=== PATIENT | male | born 1970 | race Caucasian/White ===

== ENCOUNTER 2017-11-16 00:15 | Emergency (ER) | payer OTHER, SELFPAY ==
[2017-11-16 00:16] VITALS: BP 171/105; PULSE 101; RESP 18; TEMP 36.6; O2SAT 98; BMI 32.1
--- NOTE | 2017-11-16 00:25 | CT_ITS ---
STUDY: CT BRAIN WITHOUT CONTRAST REASON FOR EXAM: Male, 47 years old. Patient has fátima RADIATION DOSAGE (If Supplied By Facility): CTDIvol = ( 44.99 ) mGy, DLP = ( 846.73 ) mGycm TECHNIQUE: Transaxial CT imaging of the brain was performed without administration of intravenous contrast material. Individualized dose optimization techniques were used for this CT. COMPARISON: None. FINDINGS: Normal soft tissue structures. Normal calvarium. Normal size ventricles and extra-axial spaces for the patient's age. Normal white matter tracts of the cerebral hemispheres. Normal basal ganglia and thalami. Normal brainstem. Normal cerebellum. There is no intracranial hemorrhage. There are no findings of an acute ischemic infarction. Normal visualized paranasal sinuses. CT/Brain/Head without Contrast IMPRESSION: Normal unenhanced CT scan of the brain. No acute findings in the brain Electronically Signed: Jimmie Batista, at 1:20 EST Tel , Service support ,
--- NOTE | 2017-11-16 00:47 | ED.VISSUMM ---
- ER Visit Summary Date of Service: 11/16/17 Chief Complaint: Altered mental state History of Present Illness: The patient is a 47 M who presents with an altered mental state. Approximately 1 month ago the patient had gallstone pancreatitis. He is transferred to [facility] had definitive management including a cholecystectomy. He was discharged home on her cassette for pain control. After he finished this course he started noticing that he was manic. states that he was impulsive and had a hard time focusing. He attempted to buy a car. They followed up with his primary care physician twice and counseling. His PCP started him on Seroquel thinking that a combination of the Percocet with his antidepressants was causing him to have a manic state. The patient has not slept well so he comes in today for evaluation. He has a diagnosis of depression but has never been bipolar or had any other previous fátima episodes. He states his abdomen is slightly tender but it is improving. Physical Examination: Vital signs reviewed. HEENT exam unremarkable. Heart is regular rate and rhythm without murmurs. Lungs are clear to auscultation. Abdomen is soft and nontender. Extremities reveal no edema. Skin exam normal. Neurologic exam normal. Psychologic exam reveals the patient does have pressured speech. He states he has a hard time focusing when I am speaking to the and he is speaking to the nurse. He denies being suicidal. He is tearful when he talks about not sleeping. Test Results: Laboratory studies normal. Tox and alcohol negative. CAT scan of the head normal Emergency Department Course and Treatment: The patient does have some tangential speech. Concern for fátima. I did want crisis to evaluate the patient. However, there was a delay in this and the just wants to take the patient home. She would like and have some Benadryl so he will sleep. They do have outpatient follow-up with a psychiatrist in their PCP already scheduled. Treatment Plan: [] Disposition: Discharge Impression: Manic episode This note was generated with [employer] dictation software. It may contain incorrect words, spelling, and punctuation that were not noted in review of the chart prior to signing ED Disposition - Plan for ED Patient: Chief Complaint: Mental Status Change Referrals: Addie Henry MD [Primary Care Provider] -
[2017-11-16 00:53] LABS: Absolute Lymphocyte Count 2.69 X10^3/ul (0.83-4.51); Absolute Neutrophil Count 5.5 X10^3/uL (2.0-7.7); Basophil# 0.05 X10^3/uL; Basophil% 0.5 % (0-1); Eosinophil# 0.54 X10^3/uL; Eosinophils% 5.6 % (0-5); Hematocrit 44.1 % (40-54); Hemoglobin 15.1 g/dl (13.0-16.5); Lymphocyte # 2.69 X10^3/ul (4.0); Lymphocyte % 27.7 % (19-41); Mean Corp Hgb Conc 34.2 g/gl (32-36); Mean Corpuscular Hgb 30.9 pg (27.0-32.0); Mean Corpuscular Volume 90.4 fL (80-94); Mean Platelet Vol. 11.4 fl (6.2-12.0); Monocyte# 0.92 X10^3/uL; Monocyte% 9.5 % (0-10); Neutrophil # 5.48 X10^3/uL (2.7-7.7); Neutrophil % 56.4 % (47-70); Platelet Count 191 K/mm3 (150-450); RBC Distribution Width CV 13.5 % (11.6-14.6); RBC Distribution Width SD 44.5 fl (35.1-43.9); Red Blood Count 4.88 M/mm3 (4.6-6.2); White Blood Count 9.7 K/mm3 (4.4-11.0)
[2017-11-16 00:54] LABS: POSITIVE COUNT NO; POSITIVE DIFFERENTIAL NO; POSITIVE MORPHOLOGY NO
[2017-11-16 01:12] LABS: AST(SGOT) 35 U/L (15-37); Alanine Aminotransfer ALT/SGPT 76 U/L (16-61); Albumin, Serum 3.6 g/dL (3.2-5.0); Alkaline Phosphatase 139 U/L (45-117); Anion Gap 7 (5-15); BUN 11 mg/dL (7-18); BUN/Creat Ratio 14.9 RATIO (10-20); Bilirubin, Direct 0.28 mg/dL (0.00-0.30); Calcium,Total 8.5 mg/dL (8.5-10.1); Chloride 106 mmol/L (98-107); Creatinine, Serum 0.74 mg/dL (0.70-1.30); EST Glomerular Filtration Rate 121 mL/min (>60); Est Glom Filt Rate - Afr Amer 146 mL/min (>60); Estimated Creatinine Clearance 131.44 ml/min; Globulin 3.7 g/dL (2.2-4.2); Glucose 126 mg/dL (70-110); Potassium 3.8 mmol/L (3.5-5.1); Protein, Total 7.3 g/dL (6.4-8.2); Sodium Level 139 mmol/L (136-145)
[2017-11-16 01:13] LABS: Alcohol, Blood (Medical)-Serum < 3.0 mg/dL
[2017-11-16 01:24] LABS: Vista UDS pH Range 6
[2017-11-16 01:45] LABS: Amphetamine Urine VISTA NEGATIVE (<1000 ng/mL); Barbiturate Urine VISTA NEGATIVE (< 200 ng/mL); Benzodiazepine Urine VISTA NEGATIVE (< 200 ng/mL); Cocaine Urine VISTA NEGATIVE (< 300 ng/mL); Ecstacy Urine VISTA NEGATIVE (< 500 ng/mL); Methadone Urine VISTA NEGATIVE (< 300 ng/mL); PCP Urine VISTA NEGATIVE (< 25 ng/mL); THC Urine VISTA NEGATIVE (< 50 ng/mL)
--- NOTE | 2017-11-16 02:46 | NURSING ---
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
[2017-11-16 03:17] VITALS: RESP 14
--- NOTE | 2017-11-16 03:17 | ED.RN ---
CT FROM CRISIS CALLED AND WILL BE BACK TO SEE THE PATIENT AROUND 2010
--- NOTE | 2017-11-16 04:30 | ED.DEP ---
ED Disposition - Plan for ED Patient: Disposition: Home or Assisted Living Chief Complaint: Mental Status Change Instructions: ED Manic Depression Referrals: Addie Henry MD [Primary Care Provider] -
[2017-11-16] MEDS: DiphenhydrAMINE 25 MG Capsule 50 MG PO (04:34)
[2017-11-16 04:46] VITALS: RESP 20
--- NOTE | 2017-11-16 04:47 | NURSING ---
VERBALIZED UNDERSTANDING OF D/C INSTRUCTIONS. PT WAS STILL IN A MANIC PHASE AT D/C. VERBALIZED SHE WAS COMFORTABLE AND WISHED TO TAKE HOME. PATIENT STATED HE ALSO WANTED TO GO HOME
== END 2017-11-16 04:48 | disposition home or self-care (01) ==
PROVIDERS: Emergency Provider Emergency Medicine; Family Provider Family Medicine; PCP Family Medicine
DX: F30.9 Manic episode, unspecified (principal)
CPT/HCPCS: 70450; 80048; 80076; 80307; 80320; 85025; 99283; G0480

== ENCOUNTER → 2017-12-30 07:59 | Outpatient (CLI) | payer OTHER, SELFPAY ==
[2017-12-30 10:30] LABS: Anion Gap 7 (5-15); BUN 9 mg/dL (7-18); BUN/Creat Ratio 10.7 RATIO (10-20); Calcium,Total 8.4 mg/dL (8.5-10.1); Chloride 107 mmol/L (98-107); Cholesterol 242 mg/dL (200); Creatinine, Serum 0.84 mg/dL (0.70-1.30); EST Glomerular Filtration Rate 103 mL/min (>60); Est Glom Filt Rate - Afr Amer 125 mL/min (>60); Glucose 85 mg/dL (74-106); High Density Lipoprotein 49 mg/dL; Potassium 4.2 mmol/L (3.5-5.1); Sodium Level 142 mmol/L (136-145); Triglycerides 130 mg/dL; Very Low Density Lipoprotein 26 mg/dL (5-40)
[2017-12-30 10:32] LABS: Hemoglobin A1c 4.9 % (4.2-6.3)
== END ==
PROVIDERS: Family Provider Family Medicine; PCP Family Medicine; Visit Provider Psychiatry & Neurology Psychiatry
DX: E78.00 Pure hypercholesterolemia, unspecified (principal); R73.9 Hyperglycemia, unspecified
CPT/HCPCS: 36415; 80048; 80061; 83036

== ENCOUNTER → 2018-01-13 08:18 | Outpatient (CLI) | payer OTHER, SELFPAY ==
[2018-01-13 10:23] LABS: Anion Gap 7 (5-15); BUN 10 mg/dL (7-18); BUN/Creat Ratio 11.4 RATIO (10-20); Calcium,Total 8.8 mg/dL (8.5-10.1); Chloride 106 mmol/L (98-107); Creatinine, Serum 0.88 mg/dL (0.70-1.30); EST Glomerular Filtration Rate 99 mL/min (>60); Est Glom Filt Rate - Afr Amer 120 mL/min (>60); Glucose 146 mg/dL (74-106); Potassium 3.6 mmol/L (3.5-5.1); Sodium Level 141 mmol/L (136-145); Thyroid Stim Hormone (TSH) 1.44 uIU/mL (0.358-3.74)
== END ==
PROVIDERS: Family Provider Family Medicine; PCP Family Medicine; Visit Provider Psychiatry & Neurology Psychiatry
DX: F31.9 Bipolar disorder, unspecified (principal)
CPT/HCPCS: 36415; 80048; 80178; 84443

== ENCOUNTER → 2018-01-26 09:22 | Outpatient (CLI) | payer OTHER, SELFPAY ==
[2018-01-26 12:44] LABS: Anion Gap 6 (5-15); BUN 10 mg/dL (7-18); BUN/Creat Ratio 10.7 RATIO (10-20); Calcium,Total 8.9 mg/dL (8.5-10.1); Chloride 107 mmol/L (98-107); Creatinine, Serum 0.93 mg/dL (0.70-1.30); EST Glomerular Filtration Rate 92 mL/min (>60); Est Glom Filt Rate - Afr Amer 112 mL/min (>60); Glucose 87 mg/dL (74-106); Potassium 3.8 mmol/L (3.5-5.1); Sodium Level 142 mmol/L (136-145)
== END ==
PROVIDERS: Family Provider Family Medicine; PCP Family Medicine; Visit Provider Psychiatry & Neurology Psychiatry
DX: F31.9 Bipolar disorder, unspecified (principal); Z51.81 Encounter for therapeutic drug level monitoring; Z79.899 Other long term (current) drug therapy
CPT/HCPCS: 36415; 80048; 80178

== ENCOUNTER 2018-02-03 08:20 | Outpatient (RCR) | payer OTHER, SELFPAY ==
--- NOTE | 2018-02-03 10:29 | BH.SGPN_ITS ---
Service Group Progress Note - Session Psychotherapy Session #1 Date Open:: 02/03/18 - 7 group members Time Started:: 09:05 Time Stopped:: 10:05 Targeted Problem #:: 1 Type of Group:: Process Goal of Group:: The goal of today's group was to check-in with client's mood, stressors, and positives, and introduce topic for the day. Client Response/Progress/Benefit:: Client responded well to session, first day in IOP, receptive to support from peers. Client reports feeling anxious and encouraged today as client was nervous about starting group, but after meeting peers client feels better. Client stated he has been struggling with depression for several months as well as a recent manic episode. 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 Client appeared to benefit from connecting with peers. Client to continue IOP to promote mood stability and prevent decompensation. Eye Contact:: Good Motor Activity:: Appropriate Appearance:: Neat Speech:: Appropriate Mood:: Anxious Affect:: Congruent Thoughts:: Linear, No evidence of hallucinations/delusions noted Staff Interventions:: Therapist used open-ended questions to elicit information about client's current stressors and mood state. Therapist was supportive by using active listening and reflection.
--- NOTE | 2018-02-04 11:55 | BH.NA ---
Physical Data - Vital Signs Pulse Rate: 84 Respiratory Rate: 14 Blood Pressure: 132/83 - Height/Weight Height: 1.75 m Weight:: 102.965 kg Weight in Pounds: 227.0 lbs Current Medication Compliance - Medication Compliance Do you take your medication as prescribed?: Yes Do you need assistance with taking medication?: No Have you had side effects from medication?: No Nutritional History - Appetite Nutritional Instructions:: If client shows signs of a swallowing problem, weight change of 10 pounds or more in the last month, or is on a diabetic diet, the physician will review and request a dietitian consult, as appropriate. All unintentional weight loss will be referred to the physician for decision on need for dietitian consult. Describe your appetite:: Fair Have you noticed a change in your eating habits lately?: Yes - appetite decreased recently w-# unintentional wt loss Functional Assessment - Sleep Pattern Describe any problems with sleeping: Denies difficulty sleeping - Activities Motor Activity:: Functional Sensory/Communication Assess - Vision Problems Do you have any vision problems?: Glasses - Hearing Problems Do you have any hearing problems?: Adequate - Communication Problems Do you have difficulty understanding what people are saying?: No Do you have trouble putting your thoughts into words or expressing what you want to say?: No Do people ever have trouble understanding what you say?: No What is your primary language?: [place] Learning Assessment - Education 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 If so, list type and date:: Yes - lap sridevi Substance Abuse - Substance Abuse Please describe substance abuse in the last 30 days:: Denies ETOH, tobacco, illicit substance, and excessive caffiene use. Mental Status Summary - Mental Status Significant Findings/Observations on Appearance and Mood:: Client is A&Ox4, casually dressed and with appropriate hygiene and grooming. Mamadou is cooperative with interview, makes good eye contact, and has normal observed activity. Speech is clear and of regular rate and rhythm. Logical associations and normal process. No symtpoms of delusions. Denies hallucination, HI, and SI. Suicide Assessment - Suicidal Ideation Are you currently or have you been suicidal in the past?: Yes Suicidal Intentional Rating Scale (SIRS): Suicidal thoughts (past) - passive thought of Physician Notification: If Active suicidal thoughts/Will not contract for safety is checked, contact physician and document in the Physician Notification section below. Past Psychiatric History - MH Treatment Hx Past Psychiatric Medications:: Zoloft, remeron, ativan Describe (age, circumstance, etc) any past hospitalizations: Nov 2017: [facility] - acute manic episode with psychosis Current providers for mental health treatment (counselor, psychiatrist, caseworker protective services, etc.): Dr. Bolanos Fall Risk Assessment - Age Age: Less than 60 - Mental Status Mental Status: Willing & able to ask for assistance when needed - Physical Status Physical Status: No problems - Impairments Impairments: None - Elimination Elimination: Continent AND independent - Gait or Balance Gait or Balance: Walks independently - Hx of Falls History of falls in the past 6 months: No known history - Medications/Substances Psychotropics:: Mood stabilizers Medications/substances used within the past 24 hours or ordered to administer: 1-2 of the medications/substances listed above - Total Score Total Points:: 1 Physician Notification - Physician Notification Physician Notified: Dulce Mcmillan Method of Notification: Face to Face Comments: treatment plan discussion RN Summary of Impressions - Impressions Recommendations: Include psychiatric and medical issues, treatment planning recommendations, and discharge planning needs. Impressions: Psychiatric Issues: bipolar 1 Impression: General Medical Conditions: N/A - Level of Care How do the client's current symptoms and functional deficits support need for this level of care?: Client has been off of work since October due to his worsening mental health symptoms. He had a manic episode that led to psychosis and inpatient hospitalization in Nov 2017. He endorses isolation, passive thoughts of , feelings of worthlessness, inability to concentrate, and severe anxiety for the past 4 weeks. This program will promote gains and prevent futher decompensation.
--- NOTE | 2018-02-04 12:46 | PCM.HP.BLA ---
History and Physical Finding information Patient is a 47-year-old male with recent diagnosis of bipolar disorder who presents to the behavioral medicine [facility] with chief complaint of depression following episode of fátima. History is been obtained per interview with patient, discussion with staff, review of chart. Encounter notes reviewed from Dr. Bolanos from November 04, 2017 through January 31, 2018. Case discussed with treatment team. History of present illness Patient is a 47-year-old male referred to the behavioral medicine [facility] by outpatient psychiatrist Dr. Bolanos for evaluation and treatment of mood symptoms with new diagnosis of bipolar disorder. Patient reports a long-standing history of depression for more than 20 years. He was recently diagnosed with bipolar disorder after a manic episode mid October. Manic episode was preceded by cholecystectomy October 18 and treatment with Zoloft and Remeron.. Patient began to recognize manic symptoms mid-October described as a elevated state. He reports having increased energy, being more talkative, reduced sleep to 2-3 hours per night, irrational behavior, impulsivity, and urges to spend money. He had a brief trial of Seroquel which initially improved his sleep but for only a few days. He was ultimately admitted to [facility] where he was started on Zyprexa for mood stabilization. He reports that his manic symptoms resolved but in December he developed increased depression. The depression persisted in spite of starting lithium. He saw Dr. Bolanos on Wednesday at which time he started Lamictal and was referred to the IOP. He does have complaint of a fine maculopapular rash noted to his his upper chest and neck noted on Wednesday. It is mildly pruritic. He denies mucosal involvement. No blisters of the mouth. No difficulty swallowing. Etiology of the rash is uncertain. Patient advised to discontinue Lamictal as he is taken only 4 doses. Will reassess. He denies previous history consistent with a discrete episode of fáitma. He does however note that there have been times in the past when his mood has been transiently elevated but of decreased intensity compared to his most recent episode in October. He endorses a depressed mood with anhedonia, decreased energy, and difficulty concentrating. He denies suicidal or homicidal ideation. He denies hallucinations. He has ruminative anxiety particularly about the future. He denies panic attacks. He denies obsessions or compulsions. He denies history of disordered eating. He reports his appetite increased with Seroquel at which time he gained weight but has now normalized. He is sleeping from 11 PM to 7 AM. Past psychiatric history Patient reports that he started antidepressants in his mid 20s. He felt at the time that they were effective for his depression. Denies previous suicide attempt or self-harm behavior. One psychiatric hospitalization as noted above in October at [facility] for 3 days for new onset fátima. Reports taking Zoloft Remeron and lorazepam prior to his fátima. Outpatient psychiatrist Dr. Bolanos. Therapist Merlin Carrington in [place]. Substance use history Denies ingestion of alcohol use of illicit drugs or smoking cigarettes. Past medical history Cholecystectomy October 18 Denies history of seizure or head injury Review of systems No fevers chills nausea vomiting chest pain dyspnea. Rash of anterior chest. All other systems reviewed and negative as above. Allergies-no known medical allergies Current medications Olanzapine 15 mg p.o. nightly [place] ER 450 mg every morning and 900 mg nightly Lamotrigine 25 mg daily Clonazepam as needed which patient has not taken in the last 48 hours Lorazepam daily as needed which patient has not taken in the last 48 hours Family medical psychiatric history Father - history of alcohol use. Dry drunk Daughter age 15-anxiety Daughter age 18-anxiety Developmental social history She was born and raised in [place]. The youngest of 3 children. Grew up with parents and one brother and one sister. Growing up was not the best. Father was standoffish and neck neglectful. Father drank alcohol and had affairs. Patient obtained a masters from [employer] in curriculum and instruction. 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 He has been off work since October due to his psychiatric symptoms. He has been for 21 years. He and his have 2 daughters ages 18 and 15 and 1 son age 13. He is spiritual. Legal history None Mental status exam Vital signs reviewed per nursing database and discussed with nursing. Fine maculopapular rash of anterior chest. Rash appears to be localized to chest area. No evident mucosal involvement. Alert and oriented . No acute distress. Ambulatory with normal gait and station. Appears stated age. Casually dressed and groomed. Appropriate hygiene. Cooperative with interview. Good eye contact. No psychomotor agitation or retardation. Mood depressed. Affect congruent. Speech is clear and with regular rate and rhythm. Language fluent. Thought process organized. Associations logical. Thought content significant for ruminative anxiety and themes of depression. No suicidal or homicidal ideation related or detected.. No symptoms consistent with psychosis noted or detected. Immediate recent and remote memory grossly intact. Attention and concentration are fair. Estimated intelligence and fund of knowledge average. Judgment and insight fair. Labs and testing 12/30/2017 hemoglobin A1c 4.9 01/13/2018 TSH 1.4 01/26/2018 lithium level 0.8, creatinine 0.93 Diagnosis Bipolar 1 disorder most recent episode depressed F 31.4 Anxiety unspecified Rash/nonspecific dermatitis-etiology uncertain Plan Admit to IOP as the structured setting is necessary to prevent decompensation. Risks benefits alternatives of medications discussed with patient. Patient acknowledges understanding. Continue olanzapine 15 mg p.o. nightly. Continue lithium ER 450 mg p.o. every morning and 900 mg p.o. nightly. Discontinue lamotrigine as patient has new rash since starting lamotrigine. Etiology of rash uncertain. Will reassess. May use diazepam and Lorazepam on limited basis. Further lab work will be gained as needed. Will discuss with Dr. Bolanos for coordination of care. Patient acknowledges understanding and is in agreement with plan. Feels able to maintain safety. Agrees to seek help or emergency care if feeling unsafe to self or others.
--- NOTE | 2018-02-04 13:08 | HP.PCM_ITS ---
History and Physical Finding information Patient is a 47-year-old male with recent diagnosis of bipolar disorder who presents to the behavioral medicine [facility] with chief complaint of depression following episode of fátima. History is been obtained per interview with patient , discussion with staff, review of chart. Encounter notes reviewed from Dr. Bolanos from November 04, 2017 through January 31, 2018. Case discussed with treatment team. History of present illness Patient is a 47-year-old male referred to the behavioral medicine [facility] by outpatient psychiatrist Dr. Bolanos for evaluation and treatment of mood symptoms with new diagnosis of bipolar disorder. Patient reports a long- standing history of depression for more than 20 years. He was recently diagnosed with bipolar disorder after a manic episode mid October. Manic episode was preceded by cholecystectomy October 18 and treatment with Zoloft and Remeron.. Patient began to recognize manic symptoms mid-October described as a elevated state. He reports having increased energy, being more talkative, reduced sleep to 2-3 hours per night, irrational behavior, impulsivity, and urges to spend money. He had a brief trial of Seroquel which initially improved his sleep but for only a few days. He was ultimately admitted to [facility] where he was started on Zyprexa for mood stabilization. He reports that his manic symptoms resolved but in December he developed increased depression. The depression persisted in spite of starting lithium. He saw Dr. Bolanos on Wednesday at which time he started Lamictal and was referred to the IOP. He does have complaint of a fine maculopapular rash noted to his his upper chest and neck noted on Wednesday. It is mildly pruritic. He denies mucosal involvement. No blisters of the mouth. No difficulty swallowing. Etiology of the rash is uncertain. Patient advised to discontinue Lamictal as he is taken only 4 doses. Will reassess. He denies previous history consistent with a discrete episode of fátima. He does however note that there have been times in the past when his mood has been transiently elevated but of decreased intensity compared to his most recent episode in October. He endorses a depressed mood with anhedonia, decreased energy, and difficulty concentrating. He denies suicidal or homicidal ideation. He denies hallucinations. He has ruminative anxiety particularly about the future. He denies panic attacks. He denies obsessions or compulsions. He denies history of disordered eating. He reports his appetite increased with Seroquel at which time he gained weight but has now normalized. He is sleeping from 11 PM to 7 AM. Past psychiatric history Patient reports that he started antidepressants in his mid 20s. He felt at the time that they were effective for his depression. Denies previous suicide attempt or self-harm behavior. One psychiatric hospitalization as noted above in October at [facility] for 3 days for new onset fátima. Reports taking Zoloft Remeron and lorazepam prior to his fátima. Outpatient psychiatrist Dr. Bolanos. Therapist Merlin Carrington in [place]. Substance use history Denies ingestion of alcohol use of illicit drugs or smoking cigarettes. Past medical history Cholecystectomy October 18 Denies history of seizure or head injury Review of systems No fevers chills nausea vomiting chest pain dyspnea. Rash of anterior chest. All other systems reviewed and negative as above. Allergies-no known medical allergies Current medications Olanzapine 15 mg p.o. nightly [place] ER 450 mg every morning and 900 mg nightly Lamotrigine 25 mg daily Clonazepam as needed which patient has not taken in the last 48 hours Lorazepam daily as needed which patient has not taken in the last 48 hours Family medical psychiatric history Father - history of alcohol use. Dry drunk Daughter age 15-anxiety Daughter age 18-anxiety Developmental social history She was born and raised in [place]. The youngest of 3 children. Grew up with parents and one brother and one sister. Growing up was not the best. Father was standoffish and neck neglectful. Father drank alcohol and had affairs. Patient obtained a masters from [employer] in curriculum and instruction. 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 He has been off work since October due to his psychiatric symptoms. He has been for 21 years. He and his have 2 daughters ages 18 and 15 and 1 son age 13. He is spiritual. Legal history None Mental status exam Vital signs reviewed per nursing database and discussed with nursing. Fine maculopapular rash of anterior chest. Rash appears to be localized to chest area. No evident mucosal involvement. Alert and oriented . No acute distress. Ambulatory with normal gait and station. Appears stated age. Casually dressed and groomed. Appropriate hygiene. Cooperative with interview. Good eye contact. No psychomotor agitation or retardation. Mood depressed. Affect congruent. Speech is clear and with regular rate and rhythm. Language fluent. Thought process organized. Associations logical. Thought content significant for ruminative anxiety and themes of depression. No suicidal or homicidal ideation related or detected.. No symptoms consistent with psychosis noted or detected. Immediate recent and remote memory grossly intact. Attention and concentration are fair. Estimated intelligence and fund of knowledge average. Judgment and insight fair. Labs and testing 12/30/2017 hemoglobin A1c 4.9 01/13/2018 TSH 1.4 01/26/2018 lithium level 0.8, creatinine 0.93 Diagnosis Bipolar 1 disorder most recent episode depressed F 31.4 Anxiety unspecified Rash/nonspecific dermatitis-etiology uncertain Plan Admit to IOP as the structured setting is necessary to prevent decompensation. Risks benefits alternatives of medications discussed with patient. Patient acknowledges understanding. Continue olanzapine 15 mg p.o. nightly. Continue lithium ER 450 mg p.o. every morning and 900 mg p.o. nightly. Discontinue lamotrigine as patient has new rash since starting lamotrigine. Etiology of rash uncertain. Will reassess. May use diazepam and Lorazepam on limited basis. Further lab work will be gained as needed. Will discuss with Dr. Bolanos for coordination of care. Patient acknowledges understanding and is in agreement with plan. Feels able to maintain safety. Agrees to seek help or emergency care if feeling unsafe to self or others.
--- NOTE | 2018-02-04 13:08 | BH.DR.ITP ---
Initial Treatment Plan - Patient Information Visit Information: ADMISSION DATE: EXPECTED LOS: 4-6 weeks Diagnoses:: Bipolar 1 disorder most recent episode depressed F 31.4 - Problems/Symptoms Problem #1:: Mood instability Symptom:: Recent fátima, depression, sad mood, anhedonia, decreased energy, inability to concentrate, biologic disruption of sleep and appetite Problem #2:: Anxiety Symptom:: Rumination
--- NOTE | 2018-02-04 15:43 | BH.SGPN ---
Service Group Progress Note - Session Psychotherapy Session #1 Date Open:: 02/04/18 Time Started:: 09:05 Time Stopped:: 10:15 Targeted Problem #:: 1 Type of Group:: Process Goal of Group:: The goal of today's group was to check-in with client's mood, stressors, and positives, review homework and introduce topic for the day. Client Response/Progress/Benefit:: Pt reported continuing to not feel like himself, struggling to be my fun, joking self. Pt shared he set a goal to play with his kids for at least 30 minutes. Pt reported he played ping pong with one of his kids and was able to joke around as well as have fun. Pt reported feeling disappointed that he was so exhausted after only 30 minutes of trying to be myself. Pt shared he has a busy weekend planned so hopefully that will help so he is not constantly ruminating. Pt seemed to benefit from support from peers as well as expressing thoughts and feelings. Pt to continue IOP level of care to improve mood stability, improve daily functioning, and prevent decompensation. Eye Contact:: Fair Motor Activity:: Appropriate Appearance:: Casual Speech:: Appropriate Mood:: Anxious, Depressed Affect:: Constricted Thoughts:: Linear, Logical, No evidence of hallucinations/delusions noted Staff Interventions:: Therapist used open-ended questions to elicit information about client's current stressors and mood state. Therapist was supportive by using active listening and reflection.
--- NOTE | 2018-02-07 14:28 | BH.SGPN ---
Service Group Progress Note - Session Psychotherapy Session #1 Date Open:: 02/07/18 Time Started:: 09:05 Time Stopped:: 09:57 Targeted Problem #:: 1 Type of Group:: Process - 6 participants Goal of Group:: The goal of today's group was to check-in with client's mood, stressors, and positives, review homework. Client Response/Progress/Benefit:: Client responded well to session and was an open and active participant throughout. He discussed being pleasantly surprised by how positive his weekend had been. Client disclosed that he had initially been concerned that he would struggle with coping and caring for his two son's while his and daughter were out of town. He went on to proudly describe successfully managing his anxiety by incorporating the skills from various groups. Client specifically identified using the thought challenging strategies he had learned in the Cognitive Distortions group on Wednesday. CLient shared, I was able to identify that I had been using 'prodicting the future' and thought of ways to change the way I was viewing the situation. Client noted that practicing mindfulness and reminding himself to focus on what he needed to enjoy the present moment aided in decreasing anxieties related to managing his responsibilities. CLient benefited from reflecting upon the progress he had made over the weekend as well as the impact this had on his mood at various points throughout. Client displaying progress in his ability to identify and implement the coping skills ad treatment tools most pertinent to improving his own mental health sx. Client recommended ongoing IOP to maintain stability and continue to make progress in understanding and managing mental health symptoms. Eye Contact:: Good Motor Activity:: Appropriate Appearance:: Casual Speech:: Appropriate Mood:: Euthymic, Anxious Affect:: Full Thoughts:: Linear, Logical, No evidence of hallucinations/delusions noted Staff Interventions:: Therapist used open-ended questions to elicit information about client's current stressors and mood state. Therapist reviewed homework assigned from previous groups. Therapist was supportive by using active listening and reflection.
--- NOTE | 2018-02-07 15:54 | BH.MDN ---
Multi-Disciplinary Note - Note 30-min Individual Time Started:: 12:10 Date: 02/07/18 Purpose of session/treatment goals addressed:: Purpose of session was to assess current symptoms and stressors. Other topics included: identifying IOP treatment goals. Eye Contact:: Good Motor Activity:: Appropriate Appearance:: Casual Speech:: Appropriate Mood:: Euthymic Affect:: Congruent Thoughts:: Linear, Logical, No evidence of hallucinations/delusions noted Staff Interventions:: Therapist used open ended questions to elicit pt's current symptoms and stressors. Therapist processed weekend, eliciting what skills pt used to help manage symptoms. Therapist collaborated with pt to identify IOP treatment goals. Provided support by using active listening and validating emotions. Client Response:: Pt responded positively to session AEB pt sharing thoughts and feelings. Pt reported he had a much better weekend than he had expected with his being gone and pt needing to care for two of his children alone. Pt shared it sounds silly to him that he was nervous to care for his own children alone, but is glad he had the opportunity to do so because it proved to himself that he could do it. Pt shared he had some negative thoughts that came up throughout the weekend, but was able to apply the skills learned from cognitive distortions group to help him challenge the thoughts. During discussion about what he wants to accomplish in the IOP program pt shared he wants to have mood stabilization. Client reported it was a scary experience for him to go from such a euphoric mood to a severly depressed mood. Client shared he would like to understand Bipolar Disorder better. Client reported he also believes it would be beneficial to process leading up to the manic episode, the manic episode, and depressed state. Client shared he has been through a lot in a short time and doesn't believe he has fully processed everything that has happened. Client reported he would also like to learn skills and strategies to help manage his anxiety and cope with stressors. 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 Client recognizes he will need to be patient with his progress and try to stay in the here and now. Risks/Concerns:: Client does not present with any risks or concerns to date. Progress Toward Goals/Plan:: Client demonstrating progress AEB client utilizing healthy skills in the moment to help him cope with negative thoughts. Session focused on establishing treatment goals for IOP. Client continuing to struggle with negative thinking, daily ruminations, and stuggle with completing daily responsibilities. Client to continue IOP level of care to improve mood stabilization, improve daily functioning and prevent decompensation. Time Stopped:: 12:40
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
--- NOTE | 2018-02-09 14:12 | BH.SGPN ---
Service Group Progress Note - Session Psychotherapy Session #2 Date Open:: 02/09/18 Time Started:: 10:18 Time Stopped:: 11:14 Targeted Problem #:: 1 Type of Group:: Illness Management - 6 participants Goal of Group:: To increase understanding of communication and the various types of communication. Another goal was to increase understanding of impact communication styles can have.? Client Response/Progress/Benefit:: Client was a positive participants throughout and did well to provide input and feedback to the group. CLient worked with fellow participants to discuss the various characteristics of of different types of communication. He shared benefiting from reflecting upon the pros and cons of each style of communication and shared connecting most with the assertive style of communication. CLient expressed believing he maintains healthy communication more often then not but can struggle with becoming overly passive at times. Client displaying progress in his ability to apply tx concepts discussed. Recommended onging IOP tx to maintain stability and continue consistent implementation of internal skills for managing anxiety and rumination as well as communicating mental health needs with supports. Eye Contact:: Good Motor Activity:: Appropriate Appearance:: Casual Speech:: Appropriate Mood:: Euthymic Affect:: Full Thoughts:: Linear, Logical, No evidence of hallucinations/delusions noted Staff Interventions:: Therapist facilitated the group discussion about communication and explained the different types of communication. Therapist assisted group members in connecting the communication styles to the way they communicate and impact the communication style has on their relationships. Therapist provided support by using active listening and providing feedback. Psychotherapy Session #3 Date Open:: 02/09/18 Time Started:: 11:19 Time Stopped:: 12:16 Targeted Problem #:: 1 Type of Group:: Functional Skills Development - 6 participants Goal of Group:: To identify important components of communication and practice specific, clear communication. Client Response/Progress/Benefit:: Client responded well to session and was engaged throughout. He contributed to both the discussion and activity portions of the group. Client provided clear instructions to the fellow participants as they attempted to complete the communication challenge and was encouraging to the group. He benefited from reflecting upon the communication barriers in the activity and barriers to communication in his own life. CLient expressed planning to increase his level of awareness related to how he communicates with family members and begin to more clearly relay his needs. CLient displaying progress in levles of insight regarding his mental health. Recommended continued focus on challenging the way he communicates with himself by identifying and reframing negative thinking patterns. Eye Contact:: Good Motor Activity:: Appropriate Appearance:: Casual Speech:: Appropriate Mood:: Euthymic Affect:: Congruent Thoughts:: Linear, Logical, No evidence of hallucinations/delusions noted Staff Interventions:: Therapist explained challenge activity to group, connecting skills learned from previous session to current activity. Therapist led group in an activity in which participants would need to use communication skills to overcome communication barriers and assist another participant in accomplishing a task. Therapist facilitated processing of challenge activity and helped connect skills used in activity to real life situations.
--- NOTE | 2018-02-09 14:31 | BH.MTP ---
Master Treatment Plan - Patient Information Program Physician:: Dr. Mcmillan Primary Therapist:: Zoey Tejada, [facility] - Psychiatric Diagnoses Psychiatric Diagnoses:: Bipolar 1 disorder most recent episode depressed. Anxiety unspecified Diagnosis Code(s):: F 31.4 - Estimated LOS Estimated LOS (in weeks):: 6 Problem/Goal #1 - Problem/Goal #1 Stated Goal:: Client will increase mood stability and decrease depressive symptoms due to Bipolar I through Intensive Outpatient Program. Description of Barriers: Client's distorted thought patterns, feeling inadequate for being off work, self-doubt, and depressive symptoms are all potential barriers to treatment progress. Functional Impact: client's mental health symptoms have contributed to client's recent hospitalization. Client has not been able to return to work due to depressive and anxious symptoms. Client's relationships have been impacted due to client's decreased energy, anhedonia, and difficulty being himself. Client not functioning at baseline. Goal Relevant Strengths/Supports: Client is intelligent and verbalizes motivation to get better. Client's family is supportive which could serve as a protective factor. - Objectives Objective #1 Stated Objective: Client will identify and replace 2-3 negative thinking patterns that reinforce feelings of hopelessness and helplessness. Interventions: Through groups and individual therapy, pt will be provided with education on cognitive distortions, mistaken beliefs, and identifying and combating negative self-talk. Therapist will help pt explore connection between thoughts, feelings, and actions. Discharge Criteria: Pt will be able to identify 2-3 negative thinking patterns and be able to effectively stop, challenge, or cope with those negative thoughts. Target Date: 03/17/18 Review Date: 03/03/18 Objective #2 Stated Objective: Identify 2-3 warning signs for both manic and depressive states and identify strategies to help when notice warning signs. Interventions: Therapist will help client identify warning signs for both a manic and depressive state. Therapist will assist client with identifying strategies and coping strategies when client notices identified warning signs. Discharge Criteria: Client will have met this goal when can verbalize at least 2 warning signs for both a manic and depressive episode as well as identify strategies or coping strateiges can use when notice specific warning signs. Target Date: 03/17/18 Review Date: 03/03/18 Problem/Goal #2 - Problem/Goal #2 Stated Goal:: Client will reduce overall frequency, intensity, and duration of anxiety so that daily functioning is not impaired. Description of Barriers: Client's distorted thought patterns, feeling inadequate for being off work, self-doubt, and depressive symptoms are all potential barriers to treatment progress. Functional Impact: client's mental health symptoms have contributed to client's recent hospitalization. Client has not been able to return to work due to depressive and anxious symptoms. Client's relationships have been impacted due to client's decreased energy, anhedonia, and difficulty being himself. Client not functioning at baseline. Goal Relevant Strengths/Supports: Client is intelligent and verbalizes motivation to get better. Client's family is supportive which could serve as a protective factor. - Objectives Objective #1 Stated Objective: Client will learn and implement 2-3 calming skills to reduce overall anxiety and manage anxiety symptoms. Interventions: Therapist will teach client calming/relaxation skills and how to apply these skills to everyday life. Discharge Criteria: Client will have achieved this goal when can verbalize at least 2 calming strategies and have practiced techniques to help reduce anxiety. Target Date: 03/17/18 Review Date: 03/03/18
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
--- NOTE | 2018-02-11 15:55 | BH.SGPN ---
Service Group Progress Note - Session Psychotherapy Session #2 Date Open:: 02/11/18 Time Started:: 10:30 Time Stopped:: 11:20 Targeted Problem #:: 1 Type of Group:: Illness Management Goal of Group:: The goal of this session was to increase self-awareness of what is holding them back from moving towards mental wellness and discuss importance of taking action in their treatment. Client Response/Progress/Benefit:: Pt contributed to discussion and listened attentively to others. Pt shared he negative thinking makes it challenging for him to use those skills and strategies he knows has worked in the past. Pt identified fear, self-doubt, negative thinking, and wallowing in depression as the things that have the most power over him. Pt seemed to benefit from increased self-awareness into what is contributing to difficulty progressing. Eye Contact:: Good Motor Activity:: Appropriate Appearance:: Casual Speech:: Appropriate Mood:: Anxious, Depressed Affect:: Constricted Thoughts:: Linear, Logical, No evidence of hallucinations/delusions noted Staff Interventions:: Therapist facilitated discussion about what it means to take action in achieving mental health wellness. Therapist led activity in which clients were asked to identify the symptoms and things that they would like to take back control over. Therapist provided support by using active listening. Psychotherapy Session #3 Date Open:: 02/11/18 Time Started:: 11:30 Time Stopped:: 12:20 Targeted Problem #:: 1 Type of Group:: Functional Skills Development Goal of Group:: The goal of this session was to create a 30 day action plan that provides small goals that work towards taking action on one thing they would like to take back control over. Client Response/Progress/Benefit:: Client engaged and active throughout session. Pt identified for his 30 day plan he focused on reducing negative thinking. Pt reported focusing on decreasig negative thinking is important to him because it will help him have a more positive self-image. Pt identified his first step is to take 5 minutes daily and focus on the good things about himself. Shared next step is to say 3 positive things towards his family members. Reported he will limit his computer usage to 45 minutes a day. Lastly shared he will limit his negative talk towards his children. Pt seemed to benefit from identifying small goals throughout the 30 days to help him reduce negative thinking. Eye Contact:: Good Motor Activity:: Appropriate Appearance:: Casual Speech:: Appropriate Mood:: Anxious, Depressed Affect:: Constricted Thoughts:: Linear, Logical, No evidence of hallucinations/delusions noted Staff Interventions:: Therapist provided materials and guidance to help clients create a 30 day action plan. Therapist provided support by giving feedback and using active listening.
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
--- NOTE | 2018-02-14 10:55 | BH.SGPN ---
Service Group Progress Note - Session Psychotherapy Session #1 Date Open:: 02/14/18 Time Started:: 09:08 Time Stopped:: 10:00 Targeted Problem #:: 1 Type of Group:: Process Goal of Group:: The goal of today's group was to check-in with client's mood, stressors, and positives, review homework and introduce topic for the day. Client Response/Progress/Benefit:: Client reported he did not have good weekend because he was experiencing a lot of anxiety. Client shared he felt like he was coming out of his skin and had a really difficult time being able to manage his emotions. Client reported he is having racing thoughts and could not identify a specific that may be contributing to his increase in anxiety throughout the entire weekend. Client shared she did try various healthy coping strategies like walking, breathing techniques, and jogging on the treadmill. Client reported he had some relief with more active coping strategies but the relief did not sustain. Client expressed some frustration not being able to manage his anxiety and found himself to withdrawal from others. Client progress hindered by recent setback of increased anxiety with healthy Coping strategies having little effect on symptoms. Continued IOP necessary to decrease anxious symptoms and prevent decompensation. Eye Contact:: Fair Motor Activity:: Appropriate Appearance:: Casual Speech:: Appropriate Mood:: Anxious, Depressed Affect:: Constricted Thoughts:: Linear, No evidence of hallucinations/delusions noted Staff Interventions:: Therapist used open-ended questions to elicit information about client's current stressors and mood state. Therapist was supportive by using active listening and reflection.
--- NOTE | 2018-02-14 13:32 | BH.SGPN ---
Service Group Progress Note - Session Psychotherapy Session #2 Date Open:: 02/14/18 - 6 group members Time Started:: 10:10 Time Stopped:: 11:00 Targeted Problem #:: 1 Type of Group:: Illness Management Goal of Group:: To increase understanding of a crisis and improve clients awareness of personal warning signs before crisis. Client Response/Progress/Benefit:: Client responded well to session, quiet, but participating when prompted by therapist. Client appeared to connect with the quote sharing, its really hard to see the good when we are going through the rough time, but its there. Client reported crisis could be losing a job, a loved, one or a traumatic event. Client reported crisis to him feels like Im spiraling down and full blown emotional distress. Client also shared when he is in crisis he has racing thoughts, anger, and irrational thoughts. Client reported it takes him a while to get out of crisis, but he reminds himself this wont last forever. Client appeared to benefit from increasing awareness of crisis and his personal warning signs. Progress noted in client's improved awareness of warning signs for crisis, but continues to struggle with reframing negative thinking. Eye Contact:: Good Motor Activity:: Appropriate Appearance:: Neat Speech:: Appropriate Mood:: Dysthymic Affect:: Congruent Thoughts:: Linear, No evidence of hallucinations/delusions noted Staff Interventions:: Therapist facilitated group discussion about defining a crisis and specifying various events that are considered a crisis. Therapist led the group in discussion about identifying personal warning signs before a crisis and importance of being aware of those signs. Therapist provided support by using active listening and providing feedback. Psychotherapy Session #3 Date Open:: 02/14/18 - 6 group members Time Started:: 11:11 Time Stopped:: 12:05 Targeted Problem #:: 1 Type of Group:: Functional Skills Development Goal of Group:: To increase awareness of warning signs before a crisis and identify interventions/coping strategies that would help clients proactively manage potential crises. Client Response/Progress/Benefit:: Client responded well to session, providing good insight. Client identified his personal warning signs before crisis as uncontrollable worries, difficulty concentrating, and negative thinking. Client stated once he starts negative thinking, it is challenging to redirect his thoughts. Client helped the group develop strategies to cope with the different stages of the crisis cycle. Client shared it is important to use positive self-talk regardless of where one is at on the crisis cycle. Client created a crisis kit selecting items for grounding coping strategies such as textured items and items that remind client on calming places. Client appeared to benefit from learning about the crisis cycle and identifying coping skills to prevent and manage crisis. Client to continue IOP to prevent decompensation and increase ability to identify and challenge negative thought patterns. Eye Contact:: Good Motor Activity:: Appropriate Appearance:: Neat Speech:: Appropriate Mood:: Anxious, Depressed Affect:: Constricted Thoughts:: Linear, No evidence of hallucinations/delusions noted Staff Interventions:: Therapist led the group in discussion about identifying personal warning signs before a crisis and importance of being aware of those signs. Therapist provided the group with various types of items and asked each group member to select five items that represent something that would be helpful in managing their warning signs of a crisis. Therapist facilitated group processing of the crisis emergency kits each group member created. Therapist used open-ended questions to encourage elaboration of each item chosen for their kit. Therapist helped clients connect how the crisis emergency kit could help be a crisis prevention tool.
--- NOTE | 2018-02-14 13:46 | BH.SGPN_ITS ---
Service Group Progress Note - Session Psychotherapy Session #2 Date Open:: 02/14/18 group members Time Started:: 10:10 Time Stopped:: 11:00 Targeted Problem #:: 1 Type of Group:: Illness Management Goal of Group:: To increase understanding of a crisis and improve client?s awareness of personal warning signs before crisis. Client Response/Progress/Benefit:: Client responded well to session, quiet, but participating when prompted by therapist. Client appeared to connect with the quote sharing, ?it?s really hard to see the good when we are going through the rough time, but it?s there.? Client reported crisis could be losing a job, a loved, one or a traumatic event. Client reported crisis to him feels like ?I?m spiraling down and full blown emotional distress.? Client also shared when he is in crisis he has racing thoughts, anger, and irrational thoughts. Client reported it takes him ?a while? to get out of crisis, but he reminds himself ? this won?t last forever.? Client appeared to benefit from increasing awareness of crisis and his personal warning signs. Progress noted in client's improved awareness of warning signs for crisis, but continues to struggle with reframing negative thinking. Eye Contact:: Good Motor Activity:: Appropriate Appearance:: Neat Speech:: Appropriate Mood:: Dysthymic Affect:: Congruent Thoughts:: Linear, No evidence of hallucinations/delusions noted Staff Interventions:: Therapist facilitated group discussion about defining a crisis and specifying various events that are considered a crisis. Therapist led the group in discussion about identifying personal warning signs before a crisis and importance of being aware of those signs. Therapist provided support by using active listening and providing feedback. Psychotherapy Session #3 Date Open:: 02/14/18 6 group members Time Started:: 11:11 Time Stopped:: 12:05 Targeted Problem #:: 1 Type of Group:: Functional Skills Development Goal of Group:: To increase awareness of warning signs before a crisis and identify interventions/coping strategies that would help clients proactively manage potential crises. Client Response/Progress/Benefit:: Client responded well to session, providing good insight. Client identified his personal warning signs before crisis as uncontrollable worries, difficulty concentrating, and negative thinking. Client stated once he starts negative thinking, it is challenging to redirect his thoughts. Client helped the group develop strategies to cope with the different stages of the crisis cycle. Client shared it is important to use positive self- talk regardless of where one is at on the crisis cycle. Client created a crisis kit selecting items for grounding coping strategies such as textured items and items that remind client on calming places. Client appeared to benefit from learning about the crisis cycle and identifying coping skills to prevent and manage crisis. Client to continue IOP to prevent decompensation and increase ability to identify and challenge negative thought patterns. Eye Contact:: Good Motor Activity:: Appropriate Appearance:: Neat Speech:: Appropriate Mood:: Anxious, Depressed Affect:: Constricted Thoughts:: Linear, No evidence of hallucinations/delusions noted Staff Interventions:: Therapist led the group in discussion about identifying personal warning signs before a crisis and importance of being aware of those signs. Therapist provided the group with various types of items and asked each group member to select five items that represent something that would be helpful in managing their warning signs of a crisis. Therapist facilitated group processing of the crisis emergency kits each group member created. Therapist used open-ended questions to encourage elaboration of each item chosen for their kit. Therapist helped clients connect how the crisis emergency kit could help be a crisis prevention tool.
--- NOTE | 2018-02-14 14:39 | BH.MDN ---
Multi-Disciplinary Note - Note 30-min Individual Time Started:: 12:10 Date: 02/14/18 Purpose of session/treatment goals addressed:: Purpose of session was to assess current symptoms and stressors. Other topics: cognitive behavior therapy psychoeducation, challenging thought patterns, and STOPP technique. Eye Contact:: Fair Motor Activity:: Appropriate Appearance:: Casual Speech:: Appropriate Mood:: Anxious, Depressed Affect:: Congruent Thoughts:: Linear, Logical, No evidence of hallucinations/delusions noted Staff Interventions:: Therapist used open ended questions to assess pt's current symptoms and stressors. Therapist reviewed last sessions homework with pt, assisting pt with connecting theme in pt's thinking of fear of not getting better. Therapist provided psychoeducation about cognitive behavioral therapy explaining connection between one's thoughts, emotions, and behavior. Therapist taught pt the STOPP (stop, take a breathe, observe, perspective, and put into action) technique, to help pt with catching himself before this negative thought patterns contribute to depressed mood state. Therapist provided support by using active listening. Client Response:: Pt responded well to session as evidenced by pt responding to questions and being open with his responses. Pt reported he had a bad weekend because he was stuck in his anxious thoughts I felt like I was crawling out of my skin. Pt shared he attempted some of the breathing skills which took a little of the edge off, but quickly his racing thoughts started back up. Pt reported he did jog on the treatmill because his made him, which pt reported jogging gave him the most relief. Pt connected with the STOPP technique reporting he would be open to practicing throughout the week. Risks/Concerns:: Client currently does not present any risks or concerns. Progress Toward Goals/Plan:: Client showing progress by engaging in healthy coping skill of jogging even when he didn't want to do anything. Client continuing to experence moderate anxiety symptoms that are impacting daily functioning. Plan is for client to practice STOPP technique and focus on consistently applying his healthy coping skills. Client to continue IOP level of care to decrease anxiety and depressive symptoms and prevent decompensation. Time Stopped:: 12:40
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
--- NOTE | 2018-03-30 15:53 | BH.SGPN_ITS ---
Service Group Progress Note - Session Psychotherapy Session #2 Date Open:: 02/03/18 Time Started:: 10:18 Time Stopped:: 11:15 Targeted Problem #:: 1 Type of Group:: Illness Management Goal of Group:: The goal of group was to increase understanding of goals and goal setting and practice a method of goal setting. Client Response/Progress/Benefit:: Pt contributed to discussion and listened attentively to others. Pt reported he agreed with the quote that goals can provide direction and give you guidance. Pt shared his depression makes it challenging to do anything, reported he recognizes if he can set small goals it can help increase his motivation. When processing activity pt connected importance of setting attainable goals and being aware of potential barriers. Pt seemed to benefit from learning about SMART goal setting and practicing setting small goals. Eye Contact:: Good Motor Activity:: Appropriate Appearance:: Casual Speech:: Appropriate Mood:: Anxious, Depressed Affect:: Congruent Thoughts:: Linear, Logical, No evidence of hallucinations/delusions noted Staff Interventions:: Therapist facilitated group discussion about goals and goal setting. Therapist taught group the acronym SMART (Specific, Measurable, Achievable, Realistic, Timely) as a tool to help with goal setting. Therapist led the group in an activity to be used as a method of practicing goal setting. Therapist guided the group through the SMART acronym as group was participating in activity. Therapist assisted group members with connecting the importance of making small, realistic goals. Psychotherapy Session #3 Date Open:: 02/03/18 Time Started:: 11:25 Time Stopped:: 12:15 Targeted Problem #:: 1 Type of Group:: Functional Skills Development Goal of Group:: The goal of group was to identify a goal for the weekend, explore the potential barriers to achieving that set goal, and identify strategies to overcome barriers. Client Response/Progress/Benefit:: Pt contributed to discussion and listened attentively to others. Pt identified his short-term SMART goal is to play with his kids for 30 minutes at least 4 times throughout the week. Pt shared the benefit of this goal is to improve his relationships. Pt identified obstacles to achieving this goal include: lack of motivation and not having enough time. Pt reported potential solutions for these obstacles include: wanting to get back to his old self and putting it in his schedule. Pt seemed to benefit from establishing a short term goal that can benefit his mental health. Eye Contact:: Good Motor Activity:: Appropriate Appearance:: Casual Speech:: Appropriate Mood:: Anxious, Depressed Affect:: Congruent Thoughts:: Linear, Logical, No evidence of hallucinations/delusions noted Staff Interventions:: Therapist facilitated group activity in which group members identified a goal to work on over the next week. Therapist asked group members to identify barriers to achieving identified goal and strategies to help them achieve their goal. Therapist led group in processing their goal maps , assisting clients with establishing SMART goals. Therapist provided support by using reflective listening.
--- NOTE | 2018-03-30 15:54 | BH.SGPN_ITS ---
Service Group Progress Note - Session Psychotherapy Session #2 Date Open:: 02/07/18 Time Started:: 10:10 Time Stopped:: 11:05 Targeted Problem #:: 1 Type of Group:: Illness Management Goal of Group:: To increase self-awareness of current reality in regards to mental wellness and desired mental wellness. Client Response/Progress/Benefit:: Client contributed positively to discussion and listened attentively to others. Client connected with quote reporting he agrees he tends to put more obstacles in front of himself compared to others. Client reported in his current reality he feels stuck in a hole, lost, and unstable. Client shared for his desired reality he wants to build a ladder which represents healthy skills and supports to help him overcome his obstacles and get out of the hole so he can feel stable again. Client seemed to benefit from identifying a future goal for himself. Eye Contact:: Good Motor Activity:: Appropriate Appearance:: Casual Speech:: Appropriate Mood:: Anxious Affect:: Congruent Thoughts:: Linear, Logical, No evidence of hallucinations/delusions noted Staff Interventions:: Therapist facilitated group discussion about current reality in regards to mental health. Client provided each group member a piece of paper and asked them to draw their current reality. Therapist led the processing of each group members drawing. Therapist provided each group member with a second piece of paper and asked clients to draw desired mental wellness. Therapist processed each group members drawing, helping clients connect the two realities. Psychotherapy Session #3 Date Open:: 02/07/18 Time Started:: 11:15 Time Stopped:: 12:05 Targeted Problem #:: 1 Type of Group:: Functional Skills Development Goal of Group:: To identify obstacles in clients path to mental wellness and identify strategies to help one overcome various obstacles. Client Response/Progress/Benefit:: client active and engaged throughout session , contributing to session and working cooperatively with others. Client identified his obstacles that are keeping him from desired reality include: fear of failure, fear of disappointing others, and discouraged he won't be able to get back to himself. Client reported it's important for him to have awareness of his obstacles so he can face the obstacles instead of ignoring them. Client identified positive self talk as one strategy that can help overcome obstacles. Client seemed to benefit from increased awareness of his obstacles. Eye Contact:: Good Motor Activity:: Appropriate Appearance:: Casual Speech:: Appropriate Mood:: Anxious Affect:: Congruent Thoughts:: Linear, Logical, No evidence of hallucinations/delusions noted Staff Interventions:: Therapist facilitated group discussion about obstacles and the hesitations of overcoming obstacles. Client led group in activity that gave client the opportunity to problem solve various obstacles throughout. Therapist helped clients connect how each obstacle is preventing them from achieving their desired reality. Therapist provided support by using reflective listening and providing feedback.
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
[2018-04-15 15:44] VITALS: BP 132/83; PULSE 84; RESP 14
--- NOTE | 2018-04-15 15:44 | BH.NA_ITS ---
Physical Data - Vital Signs Pulse Rate: 84 Respiratory Rate: 14 Blood Pressure: 132/83 - Height/Weight Height: 1.75 m Weight:: 102.965 kg Weight in Pounds: 227.0 lbs Current Medication Compliance - Medication Compliance Do you take your medication as prescribed?: Yes Do you need assistance with taking medication?: No Have you had side effects from medication?: No Nutritional History - Appetite Nutritional Instructions:: If client shows signs of a swallowing problem, weight change of 10 pounds or more in the last month, or is on a diabetic diet, the physician will review and request a dietitian consult, as appropriate. All unintentional weight loss will be referred to the physician for decision on need for dietitian consult. Describe your appetite:: Fair Have you noticed a change in your eating habits lately?: Yes - appetite decreased recently w-# unintentional wt loss Functional Assessment - Sleep Pattern Describe any problems with sleeping: Denies difficulty sleeping - Activities Motor Activity:: Functional Sensory/Communication Assess - Vision Problems Do you have any vision problems?: Glasses - Hearing Problems Do you have any hearing problems?: Adequate - Communication Problems Do you have difficulty understanding what people are saying?: No Do you have trouble putting your thoughts into words or expressing what you want to say?: No Do people ever have trouble understanding what you say?: No What is your primary language?: Wallisian Learning Assessment - Education What is your level 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 If so, list type and date:: Yes - lap sridevi Substance Abuse - Substance Abuse Please describe substance abuse in the last 30 days:: Denies ETOH, tobacco, illicit substance, and excessive caffiene use. Mental Status Summary - Mental Status Significant Findings/Observations on Appearance and Mood:: Client is A&Ox4, casually dressed and with appropriate hygiene and grooming. Mamadou is cooperative with interview, makes good eye contact, and has normal observed activity. Speech is clear and of regular rate and rhythm. Logical associations and normal process. No symtpoms of delusions. Denies hallucination, HI, and SI. Suicide Assessment - Suicidal Ideation Are you currently or have you been suicidal in the past?: Yes Suicidal Intentional Rating Scale (SIRS): Suicidal thoughts (past) - passive thought of Physician Notification: If Active suicidal thoughts/Will not contract for safety is checked, contact physician and document in the Physician Notification section below. Past Psychiatric History - MH Treatment Hx Past Psychiatric Medications:: Zoloft, remeron, ativan Describe (age, circumstance, etc) any past hospitalizations: Nov 2017: [facility] - acute manic episode with psychosis Current providers for mental health treatment (counselor, psychiatrist, case worker , etc.): Dr. Bolanos Fall Risk Assessment - Age Age: Less than 60 - Mental Status Mental Status: Willing & able to ask for assistance when needed - Physical Status Physical Status: No problems - Impairments Impairments: None - Elimination Elimination: Continent AND independent - Gait or Balance Gait or Balance: Walks independently - Hx of Falls History of falls in the past 6 months: No known history - Medications/Substances Psychotropics:: Mood stabilizers Medications/substances used within the past 24 hours or ordered to administer: 1 -2 of the medications/substances listed above - Total Score Total Points:: 1 Physician Notification - Physician Notification Physician Notified: Dulce Mcmillan Method of Notification: Face to Face Comments: treatment plan discussion RN Summary of Impressions - Impressions Recommendations: Include psychiatric and medical issues, treatment planning recommendations, and discharge planning needs. Impressions: Psychiatric Issues: bipolar 1 Impression: General Medical Conditions: N/A - Level of Care How do the client's current symptoms and functional deficits support need for this level of care?: Client has been off of work since October due to his worsening mental health symptoms. He had a manic episode that led to psychosis and inpatient hospitalization in Nov 2017. He endorses isolation, passive thoughts of , feelings of worthlessness, inability to concentrate, and severe anxiety for the past 4 weeks. This program will promote gains and prevent futher decompensation.
== END 2018-02-14 23:59 ==
LOC: BHIOP 08:20
PROVIDERS: Family Provider Family Medicine; PCP Family Medicine; Visit Provider Psychiatry & Neurology Psychiatry
DX: F31.4 Bipolar disorder, current episode depressed, severe, without psychotic features (principal); F41.9 Anxiety disorder, unspecified; L30.9 Dermatitis, unspecified; Z79.899 Other long term (current) drug therapy
CPT/HCPCS: H0035; 90832; 90853

== ENCOUNTER 2018-02-16 10:17 | Outpatient (RCR) | payer OTHER, SELFPAY ==
--- NOTE | 2018-02-16 10:29 | BH.SGPN ---
Service Group Progress Note - Session Psychotherapy Session #1 Date Open:: 02/16/18 Time Started:: 09:06 Time Stopped:: 10:06 Targeted Problem #:: 1 Type of Group:: Process Goal of Group:: The goal of today's group was to check-in with client's mood, stressors, and positives, review homework and introduce topic for the day. Client Response/Progress/Benefit:: Pt reported he spent some time outside to get in the sun and enjoy the outdoors. Pt shared he did notice his mood improved when he was outside. Pt reported he also spent time playing tennis with one of his kids, which he noted also improved his mood. Client reported yesterday he used the STOPP technique to help him get out his ruminations. client showing progress AEB client reporting generalization of healthy coping skills with positive impact on his mood. Eye Contact:: Good Motor Activity:: Appropriate Appearance:: Casual Speech:: Appropriate Mood:: Anxious, Dysthymic Affect:: Congruent Thoughts:: Linear, Logical, No evidence of hallucinations/delusions noted Staff Interventions:: Therapist used open-ended questions to elicit information about client's current stressors and mood state. Therapist was supportive by using active listening and reflection.
--- NOTE | 2018-02-16 13:43 | BH.SGPN_ITS ---
Service Group Progress Note - Session Psychotherapy Session #2 Date Open:: 02/16/18 - 6 group members Time Started:: 10:18 Time Stopped:: 11:08 Targeted Problem #:: 1 Type of Group:: Illness Management Goal of Group:: To increase understanding of pitfalls and impact can have on mental health. Client Response/Progress/Benefit:: Client responded well to session, active participant. Client appeared to connect with the quote, sharing, the right path is full of hard choices. Client stated pitfalls are barriers to success. Client identified negative thinking as a major pitfall for him. Client reported pitfalls can lead to self-sabotage, low self-esteem, and rumination. Client shared being aware of one?s pitfalls is important so ?we can learn to overcome them.? Client appeared to benefit from gaining awareness of how pitfalls impact mental health. Progress noted in client's generalization of healthy coping skills, but can continue to benefit from challenging negative thoughts. Eye Contact:: Fair Motor Activity:: Appropriate Appearance:: Neat Speech:: Appropriate Mood:: Dysthymic Affect:: Constricted Thoughts:: Linear, No evidence of hallucinations/delusions noted Staff Interventions:: Therapist facilitated discussion about pitfalls and assisted group in identifying common pitfalls that can set you back. Therapist led group in an activity to help group understand impact pitfalls can have on oneself and identify strategies that could help you get back on the right path. Therapist provided support by using active listening and providing feedback. Psychotherapy Session #3 Date Open:: 02/16/18 - 6 group members Time Started:: 11:16 Time Stopped:: 12:15 Targeted Problem #:: 1 Type of Group:: Functional Skills Development Goal of Group:: To identify personal pitfalls and what keeps them stuck from moving forward. Client Response/Progress/Benefit:: Client responded well to session, active participant. Client connected the activity to life sharing ?if we don?t have awareness and communicate, our supports won?t know how to help us.? Client identified personal pitfalls of his as negative thinking, hypersensitivity to mental health symptoms, low self-esteem, pretending he is ?okay? when he is not , and poor communication. Client reported his negative thinking mainly keeps client stuck. Client helped the group identify strategies to overcome and prevent pitfalls such as looking at the evidence against his negative thoughts, reflecting on progress and not comparing self to others, and using coping skills daily. Client appeared to benefit from increasing awareness of personal pitfalls and identifying strategies to overcome them. Client to continue IOP to promote mood stability and reduce negative thinking. Eye Contact:: Good Motor Activity:: Appropriate Appearance:: Neat Speech:: Appropriate Mood:: Dysthymic Affect:: Constricted Thoughts:: Linear, No evidence of hallucinations/delusions noted Staff Interventions:: Therapist facilitated activity in which group members were given the task to identify personal pitfalls and what keeps them stuck from moving past the pitfall. Therapist provided group members with the homework assignment of identifying strategies that can help them overcome pitfalls.
--- NOTE | 2018-02-18 10:53 | BH.SGPN_ITS ---
Service Group Progress Note - Session Psychotherapy Session #1 Date Open:: 18 - 7 participants Time Started:: 09:05 Time Stopped:: 10:10 Targeted Problem #:: 1 Type of Group:: Process Goal of Group:: The goal of today's group was to check-in with client's mood, stressors, and positives, review homework and introduce topic for the day. Client Response/Progress/Benefit:: Client responded well to session, quiet, but participating in discussion. Client reports feeling frustrated today as client shares feeling worried his anxiety and depression will not reduce in severity. Client stated, I've been trying to use the skills but they don't seem to get rid of the thoughts. Client was receptive to group feedback on being self- compassionate and patient with progress. Client shared he often is not patient with himself and wants a quick fix, but understands that is unrealistic. Client reported his anxiety is most intense in the mornings and the group gave client ideas for calming strategies to try to prevent rumination. Client appeared to benefit from supportive statements from peers. Progress noted as client has increased awareness of warning signs, but continues to struggle with patience and thought challenging. Client to continue IOP to promote mood stability and reduce negative thinking. Eye Contact:: Fair Motor Activity:: Appropriate Appearance:: Neat Speech:: Appropriate Mood:: Anxious Affect:: Constricted Thoughts:: Racing, No evidence of hallucinations/delusions noted Staff Interventions:: Therapist used open-ended questions to elicit information about client's current stressors and mood state. Therapist was supportive by using active listening and reflection.
--- NOTE | 2018-02-18 15:04 | PCM.PN.BLA ---
Progress Note Patient is seen in follow-up for bipolar 1 disorder most recent episode depressed F 31.4 and anxiety unspecified. History is been obtained per interview with patient, discussion with staff, review of chart. Case discussed with Dr. Bolanos for coordination of care per patient request. Discussed with treatment team. Chief complaint-bipolar disorder-depression and anxiety coming out of my skin Interim history Moderate depressive symptoms persist but of decreased intensity over the past 2 weeks. He continues to complain of decreased energy and anhedonia. He reports more anxiety which he describes as a physical sensation of restlessness or coming out of my skin. He notes the anxiety is worse when I do tactile things. It is unclear if his symptoms represent increased anxiety or side effect/akathisia from medication. He has ongoing ruminative anxiety regarding his prognosis and his ability to return to work. He denies suicidal or homicidal ideation. He denies symptoms consistent with psychosis. He is sleeping from 10 PM to 6 AM and feels that his sleep is adequate. He used Klonopin only once within the last week to assist with sleep. Appetite is normal. He denies nausea vomiting or diarrhea. He discontinued Lamictal due to rash on 02/04/2018. Rash resolved. He resumed the Lamictal at a reduced dose of 12.5 mg daily on 02/14/2018. Rash recurred within 2 days. He again discontinued Lamictal and rash has currently resolved. No mucosal involvement. No blisters of the oropharynx or difficulty swallowing. He has been compliant with lithium ER 450 mg every morning and 900 mg nightly and Zyprexa 15 mg nightly. No evidence of EPS. Mental status exam Alert and oriented . No acute distress. Ambulatory with normal gait and station. Appears stated age. Casually dressed and groomed. Appropriate hygiene. Cooperative with interview. Good eye contact. No psychomotor agitation or retardation. Mood depressed. Affect congruent. Speech is clear and with regular rate and rhythm. Language fluent. Thought process organized. Associations logical. Thought content significant for ruminative anxiety and themes of depression. No suicidal or homicidal ideation related or detected.. No symptoms consistent with psychosis noted or detected. Immediate recent and remote memory grossly intact. Attention and concentration are fair. Estimated intelligence and fund of knowledge average. Judgment and insight fair to good. Labs and testing January 26, 2018 lithium level 0.8 Lab work will be obtained as needed Diagnosis Bipolar 1 disorder most recent episode depressed F 31.4 Anxiety unspecified Dermatitis/rash-likely adverse reaction to Lamictal Possible akathisia Plan Continue IOP as the structured setting is necessary to maintain gains and prevent decompensation. Risks benefits alternatives of medications discussed with patient. Patient acknowledges understanding. Continue lithium ER 450 mg every morning and 900 mg nightly. Continue Zyprexa 15 mg nightly. Start Cogentin 0.5 mg p.o. twice daily as patient is likely having side effect to the Zyprexa. Discontinue Lamictal due to rash. Encouraged follow-up with Dr. Bolanos. 18 minutes of Insight oriented psychotherapy provided. Patient acknowledges understanding and is in agreement with plan. Feels able to maintain safety. Agrees to seek help or emergency care feeling unsafe to self or others.
--- NOTE | 2018-02-18 16:01 | PCM.PN.BLA ---
Progress Note This is an update to the history and physical of 02/04/2018 Patient is seen in follow-up for major depressive disorder recurrent moderate F 33.1, anxiety unspecified, PTSD. History is been obtained per interview with patient, discussion with staff, review of chart. Case discussed with treatment team. Chief complaint depression and anxiety-rough weekend. Interim history Patient reports that it has been a difficult couple weeks. He is in the process of from his of 7 years. He reports increased depression and anxiety over the weekend after learning that his was previously unfaithful. He is attempting to use coping skills gained through IOP for radical acceptance and increased insight. He acknowledges that he has also had extramarital behaviors and is in the goal of boundary setting with women. He recognizes his previous attempts to fix relationships with sex. He has ongoing ruminative anxiety particularly about his future. He reports ongoing PTSD symptoms. He has been attempting to work third shift but feels overwhelmed. He is sleeping only 4-6 hours per night due to work shift and other interruptions. His appetite is normal. He denies nausea vomiting or diarrhea. He has reduced his caffeine consumption is drinking 1 energy drink only 4 times per week. He did consume 4 beers and part of 1/5 of hard liquor over the weekend in an effort to cope. No current suicidal or homicidal ideation. No symptoms consistent with psychosis. Compliant with Effexor XR 225 mg daily. Reports Effexor was recently increased this week to 225 mg by outpatient provider. Mental status exam Alert and oriented . No acute distress. Ambulatory with normal gait and station. Appears stated age. Casually dressed and groomed. Appropriate hygiene. Cooperative with interview. Good eye contact. No psychomotor agitation or retardation. Mood depressed. Affect congruent. Speech is clear and with regular rate and rhythm. Language fluent. Thought process organized. Associations logical. Thought content significant for ruminative anxiety and themes of depression. No suicidal or homicidal ideation related or detected.. No symptoms consistent with psychosis noted or detected. Immediate recent and remote memory grossly intact. Attention and concentration are fair. Estimated intelligence and fund of knowledge average. Judgment and insight fair. Physical exam Head is normocephalic and atraumatic. Extraocular movements intact. Mucous memories are moist. Throat without erythema. Neck supple. Heart has a regular rate and rhythm. Lungs clear. Breath sounds equal. Bowel sounds present. Patient has spontaneous motion of extremities. Distal pulses intact. Diagnosis Major depressive disorder recurrent moderate of 33.1 Anxiety unspecified PTSD Sleep apnea CPAP compliant Hypothyroidism Fatty liver disease Plan Patient reports increased symptoms in spite of IOP level care. Patient agrees to start PHP for increased support. Risks benefits alternatives of medications discussed with patient. Patient acknowledges understanding. Continue Effexor XR 225 mg daily. Continue trazodone 50 mg nightly as needed for insomnia. Encouraged ongoing CPAP compliance. Encouraged caffeine reduction. Encouraged to follow-up with outpatient providers for when PHP and IOP complete. 25 minutes of psychotherapy provided including DBT skill of radical acceptance and boundary setting. Patient acknowledges understanding and is in agreement with plan. He feels able to maintain safety. He agrees to seek help care if feeling unsafe to self or others.
--- NOTE | 2018-02-21 14:36 | BH.SGPN ---
Service Group Progress Note - Session Psychotherapy Session #2 Date Open:: 02/21/18 Time Started:: 10:25 Time Stopped:: 11:15 Targeted Problem #:: 1 Type of Group:: Illness Management Goal of Group:: To increase understanding how positive and negative forces in life can impact balance in life. Client Response/Progress/Benefit:: Client receptive to group, contributing his thoughts and engaged in acitivty. Client connected that personal growth is not going to just happen out of nothing, one has to put forth the work in order for growth to happen. When processing activity client recognizes utilizing his healthy coping skills can help him balance his forces. Client also reported communicating with his supports is important so he can get the help needed. Client seemed to benefit from increasing awareness of what can help balance his forces of life. Eye Contact:: Good Motor Activity:: Appropriate Appearance:: Casual Speech:: Appropriate Mood:: Anxious, Dysthymic Affect:: Constricted Thoughts:: Linear, Logical, No evidence of hallucinations/delusions noted Staff Interventions:: Therapist facilitated group discussion about the various forces of life and helped clients connect the impact they have on balance in life. Therapist led group in an experiential activity in which group members had to work together to balance an object and move it to a designated location. Therapist utilized the activity as a tool to process the challenges connected with balancing various forces. Psychotherapy Session #3 Date Open:: 02/21/18 Time Started:: 11:25 Time Stopped:: 12:15 Targeted Problem #:: 1 Type of Group:: Functional Skills Development Goal of Group:: To identify positive and negative forces in life and identify which forces are helping stability and which forces are contributing to instability. Client Response/Progress/Benefit:: Client attentive, focused, and actively engaged thruoghout session. Client identified his positive forces to include: supportive family, God, time with friends, IOP, and healthy coping. Client reported his negative forces to include: negative thinking, low self-esteem, fear of futre, and self-doubt. Client reported fear of future to be the most impactful that is contributing to client staying stuck. 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 Client recognizes by constantly worrying about what might happen he isn't focused on what he can do in the current moment. Client seemed to benefit from increasing awareness of his positive and negative force as well as thinking about what he can do to increase his stability. Eye Contact:: Good Motor Activity:: Appropriate Appearance:: Casual Speech:: Appropriate Mood:: Anxious, Dysthymic Affect:: Constricted Thoughts:: Linear, Logical, No evidence of hallucinations/delusions noted Staff Interventions:: Therapist provided group with an example of a scenario of a person and the individuals positive and negative forces. Therapist provided each group member with a worksheet in which they were to identify five positive and five negative forces in their life. Therapist processed the activity with the group, helping others connect the impact certain forces have on their life balance.
--- NOTE | 2018-02-21 14:59 | BH.MDN ---
Multi-Disciplinary Note - Note 30-min Individual Time Started:: 09:30 Date: 02/21/18 Purpose of session/treatment goals addressed:: Purpose of session was to assess current symptoms and stressors. Other topics included: review of homework, gathering additional background information, and refocusing goals. Eye Contact:: Good Motor Activity:: Appropriate Appearance:: Casual Speech:: Appropriate Mood:: Anxious, Other - tearful when talking about work Affect:: Congruent Thoughts:: Linear, Logical, No evidence of hallucinations/delusions noted Staff Interventions:: Therapist used open ended questions to elicit pt's current symptoms and stressors. Therapist reviewed pt's previous homework assignment, exploring how the technique helped and didn't help. Therapist processed past weekend, noting positives and successes. Therapist elicited what pt would like to focus on in individual sessions that would be most beneficial to him. Therapist provided homework to pt asking him to create a list of activities he used to enjoy engaging in. Client Response:: Pt shared he had an overall good weekend. Reported on Wednesday his and oldest child was gone so he was responsible for his 2 youngest children. Pt shared he took his kids to a cookout and lately when he goes to large events he tends to sit back and compare himself to others. Pt reported he often would hear what someone else can do and tell himself he isn't worthy since he can't do that specific skill. Pt shared however at this cookout he had some of those self-depracating thoughts, but was able to challenge and reframe the thoughts. Pt reported he didn't let the thoughts be all consuming and actually enjoyed himself. Pt identified that day as a success for himself. Pt shared Wednesday wasn't too bad, had taken his nighttime medication during the day which resulted in him being groggy and needing a nap. Pt reproted overall the weekend was much better than it has been. Pt reported he found himself using the STOPP technique learned in last session which helped reduce his anxiety in the moment. Pt shared he really likes that the technique makes him look at his situation from a more objective point. Pt reported he also believes the new medication IOP psychiatrist prescribed on Wednesday has been helping take the edge off of his anxiety because he hasn't felt like he is crawling out of his skin. Pt noticing progress with being able to use his skills better. Pt identified wanting to focus on processing everything that happened in the past 4 months with his medical procedure then manic episode and hospitalization. Pt shared he also thinks it would be helpful to explore strategies to help him manage depressive episodes. Risks/Concerns:: Pt denies SI/HI plan or intention to date. Progress Toward Goals/Plan:: Pt is making progress as evidenced by pt reporting decrease in both anxiety and depression. Pt also showing progress with utilizing his healthy coping strategies on a more consistent basis. Pt continuing to have a hard time being patient with his recovery, wanting to robledo his progress. Pt shows good insight and awareness into his mental health symptoms as well as being able to identify what choices he makes are not helping him progress. Time Stopped:: 10:05
--- NOTE | 2018-02-23 10:46 | BH.SGPN ---
Service Group Progress Note - Session Psychotherapy Session #1 Date Open:: 02/23/18 Time Started:: 09:10 Time Stopped:: 10:00 Type of Group:: Process - 4 group members Goal of Group:: The goal of today's group was to check-in with client's mood, stressors, and positives, and review homework. Client Response/Progress/Benefit:: Pt was an active participant in group discussion. Emotion for today is anxious. Shared with the group that his mood has been up and down shifting from anxiety to depression to normal. Feeling hopeless as he often compares himself currently to how he used to function. Ruminates on how he used to be and does not believe he was ever return to functioning consistently. Group was able to provide feedback and support. Towards end of the group pt stated I may never get back to how I was, but maybe I can be better Also was able to see the progress he has made since his hospitalization over a month ago. Progress noted. With the help of the group was able to reframe negative thinking and be more hopefull. Payam continue in IOP to prevent decompensation, stabilize mood, and improve functioning to return to work. Eye Contact:: Good Motor Activity:: Appropriate Appearance:: Casual Speech:: Appropriate Mood:: Anxious, Depressed Affect:: Congruent Thoughts:: Linear, Logical, No evidence of hallucinations/delusions noted Staff Interventions:: Therapist used open-ended questions to elicit information about client's current stressors and mood state. Therapist was supportive by using active listening and reflection.
--- NOTE | 2018-02-25 11:05 | BH.SGPN ---
Service Group Progress Note - Session Psychotherapy Session #1 Date Open:: 02/25/18 Time Started:: 09:10 Time Stopped:: 10:00 Type of Group:: Process - 6 group members Goal of Group:: The goal of today's group was to check-in with client's mood, stressors, and positives, and review homework. Client Response/Progress/Benefit:: Active participant in group discussion. Emotion for today is grateful and depressed. Shared that his anxiety has gotten better due to recent medication changes and increased mood management skills. Shared a recent example of utilizing thought reframing skills due manage anxiety. Reports that while anxiety has improved he feels that his depression remains the same. He discussed increased irritability and frustration with small tasks. Feels overwhelmed with emotions at times and need to sleep. Group provided feedback and support which pt benefited from. Progress noted as pt reports decrease in anxiety. Will continue in IOP to decrease depression, improve functioning, and prevent further decompensation. Eye Contact:: Fair Motor Activity:: Appropriate Appearance:: Casual Speech:: Appropriate Mood:: Depressed Affect:: Flat Thoughts:: Linear, Logical, No evidence of hallucinations/delusions noted Staff Interventions:: Therapist used open-ended questions to elicit information about client's current stressors and mood state. Therapist was supportive by using active listening and reflection.
--- NOTE | 2018-02-25 14:43 | BH.SGPN_ITS ---
Service Group Progress Note - Session Psychotherapy Session #2 Date Open:: 02/25/18 - 7 group members Time Started:: 10:10 Time Stopped:: 11:15 Targeted Problem #:: 1 Type of Group:: Illness Management Goal of Group:: To increase understanding of what conflict is and increase awareness of how group members manage conflict. Client Response/Progress/Benefit:: Client responded well to session, active participant. Client connected with the quote sharing peace doesn?t mean nothing bad happens, it means you can deal with the bad.? Client reported one can have internal and external conflict and shared he often struggles with internal conflict of self-sabotage and negative thoughts. Client identified his conflict resolution style as mostly cooperative, but sometimes accommodating. Client shared when dealing with internal conflict he is a shark as client is hard on himself and his negative thinking takes over. Client shared he is mostly content with his current conflict resolution style, but recognizes his negative thinking, assumptions, and emotions have impacted his ability to manage conflicts in the past. Client appeared to benefit from increasing awareness of his personal conflict resolution style. Progress noted in client's increased awareness and use of coping skills, but continues to struggle with challenging negative thoughts. Eye Contact:: Fair Motor Activity:: Appropriate Appearance:: Neat Speech:: Appropriate Mood:: Anxious Affect:: Constricted Thoughts:: Linear, No evidence of hallucinations/delusions noted Staff Interventions:: Therapist facilitated discussion about conflict and conflict resolution. Therapist led group in an activity in which group members had to identify their initial response to conflict and how their response changes based on different situations. Therapist assisted clients with connecting the impact current conflict style has on their mental health. Psychotherapy Session #3 Date Open:: 02/25/18 - 6 group members Time Started:: 11:23 Time Stopped:: 12:13 Targeted Problem #:: 1 Type of Group:: Functional Skills Development Goal of Group:: To identify what contributes positively and negatively to conflict and appropriate ways to manage conflict with others. Client Response/Progress/Benefit:: Client responded well to session, active participant. Client recognized he did not always provide his input during the activity, but with therapist elicitation, he more assertively verbalized his thoughts. Client helped the group identify strategies to improve conflict resolution such as having awareness of emotions, looking at different perspectives, challenging negative thoughts, and prioritizing. Client shared he plans to use strategies from today's group to pay more attention to his ? conflict starters? and how to more effectively communicate during a conflict. Client appeared to benefit from learning various conflict resolution strategies. Client to continue IOP to reduce anxiety and prevent decompensation. Eye Contact:: Good Motor Activity:: Appropriate Appearance:: Neat Speech:: Appropriate Mood:: Anxious Affect:: Constricted Thoughts:: Linear, No evidence of hallucinations/delusions noted Staff Interventions:: Therapist facilitated group activity in which group members were provided with materials and had to eliminate certain items with consensus from group. Therapist processed activity, helping clients connect throughout activity strategies each person used to manage conflict. Therapist led discussion about what contributes to conflict in a positive or negative manner. Therapist facilitated discussion about conflict resolution strategies and provided group member with a handout about effective ways to manage conflict.
--- NOTE | 2018-03-02 10:54 | BH.SGPN ---
Service Group Progress Note - Session Psychotherapy Session #1 Date Open:: 03/02/18 Time Started:: 09:05 Time Stopped:: 10:07 Targeted Problem #:: 1 Type of Group:: Process - 4 participants Goal of Group:: The goal of today's group was to check-in with client's mood, stressors, and positives, review homework and introduce topic for the day. Client Response/Progress/Benefit:: Client responded well to session and was actively engaged in the process discussion throughout. CLient shared he has been experiencing ongoing frustration related to continued symptoms of depression. CLient shared that since experiencing his first manic state in October, he has been struggling significantly with increased symptoms of depression. CLient reflected that the biggest frustration is that he has never experienced a depressive state this severe or which such a long duration. Client appeared to benefit from and connect with the discussion of challenging himself to be as patient with his mental health recovery as he would be with a physical problem. Client identified wanting to be able to laugh and joke around like he used to. He shared that challenging himself to try to joke around can help with improving overall mood. CLient displaying progress in levels of insight into how his thoughts and behavious maintain mental health symptoms. CLient would benefit from further focus on identifying small areas of progress and clallenging himself not to disqualify the positive. Eye Contact:: Good Motor Activity:: Appropriate Appearance:: Casual Speech:: Appropriate Mood:: Dysthymic, Other - Self-described as frustrated Affect:: Congruent Thoughts:: Linear, Logical, No evidence of hallucinations/delusions noted Staff Interventions:: Therapist used open-ended questions to elicit information about client's current stressors and mood state. Therapist was supportive by using active listening and reflection. Therapist utilized a quote as a tool in introducing the topic of the day.
--- NOTE | 2018-03-03 14:36 | BH.TPR ---
Treatment Plan Review Date of Admission:: 02/03/18 Date of Treatment Plan Review:: 03/03/18 Admitting Diagnoses:: Bipolar 1 disorder most recent episode depressed F 31.4. Anxiety unspecified Current Diagnoses:: Bipolar 1 disorder most recent episode depressed F 31.4. Anxiety unspecified Patient's Response to Treatment:: Pt attends IOP on his scheduled day consistently. During group client often is an active participant, sharing his thoughts and ideas and engaged during activities. Client often completes the homework given in both individual and group counseling sessions. Status of Current Problems and Symptoms: Client reports his anxiety symptoms have decreased in intensity and duration following a medication change and utilization of healthy coping mechanisms. Client verbalizes frustration with continued depressive symptoms. Client reports daily functioning still being hindered by his intense depressive symptoms. Endorses sadness most days, difficulty concentrating, anhedonia, apathy, and not feeling like myself. Some progress observed with being able to thought challenge and starting to use healthy coping skills. Client has made some progress on his treatment goals however due to still struggling with moderate depressive symptoms, ontinue IOP level of care to decrease depressive symptoms, improve daily functioning, and prevent decompensation.
--- NOTE | 2018-03-04 12:31 | PN_ITS ---
Progress Note Patient is seen in follow-up for bipolar 1 disorder most recent episode depressed F 31.4, anxiety unspecified and likely medication reaction (akathisia) . History has been obtained per interview with patient, discussion with staff, review of chart. Case discussed with treatment team. Chief complaint-bipolar disorder/depression and anxiety. The depression is still pretty intense Interim history Moderate depressive symptoms persist but of decreased intensity over the past 1- 2 weeks. He identifies negative self judging and is using thomas mind and thought challenging. He acknowledges sadness associated with the consequences to his family of his fátima. He notes that his energy is overall improving. He has been exercising 2-3 times per week. He is considering resuming running as part of his exercise regimen. He acknowledges that his anxiety is decreased with Cogentin. He is no longer experiencing the restlessness which was likely secondary to akathisia from the Zyprexa. He acknowledges some rumination about his prognosis overall which tends to be worse in the mornings. He describes his sleep as decent and is sleeping 9-10 hours per night. Appetite is normal. Denies nausea vomiting or diarrhea. He has been compliant with lithium ER 450 mg every morning and 900 mg at night and Zyprexa 15 mg nightly and Cogentin 0.5 mg p.o. twice daily. No further rash since discontinuation of Lamictal. Mental status exam Alert and oriented . No acute distress. Ambulatory with normal gait and station. Appears stated age. Casually dressed and groomed. Appropriate hygiene. Cooperative with interview. Good eye contact. No psychomotor agitation or retardation. Mood depressed. Affect congruent. Speech is clear and with regular rate and rhythm. Language fluent. Thought process organized. Associations logical. Thought content significant for ruminative anxiety and themes of depression. No suicidal or homicidal ideation related or detected. No symptoms consistent with psychosis noted or detected. Immediate recent and remote memory grossly intact. Attention and concentration are fair. Estimated intelligence and fund of knowledge average. Judgment and insight proving. Labs and testing January 26, 2018 lithium level 0.8 Further lab work will be obtained as needed Diagnosis Bipolar 1 disorder most recent episode depressed F 31.4 Anxiety unspecified Dermatitis/rash likely secondary to Lamictal-now resolved Akathisia likely secondary to Zyprexa-controlled with Cogentin Continue IOP as the structured setting is necessary to maintain gains and prevent decompensation. Risks benefits alternatives of medications discussed with patient. Patient acknowledges understanding. Continue lithium ER 450 mg every morning and 900 mg nightly. Continue Zyprexa 15 mg nightly. Continue Cogentin 0.5 mg p.o. twice daily. Encouraged ongoing follow-up with Dr. Bolanos. 25 minutes of Insight oriented psychotherapy provided. Encouraged exercise. Patient acknowledges understanding and is in agreement with plan. Feels able to maintain safety. Agrees to seek help or emergency care if feeling unsafe to self or others.
--- NOTE | 2018-03-04 13:21 | BH.SGPN ---
Service Group Progress Note - Session Psychotherapy Session #3 Date Open:: 03/04/18 Time Started:: 11:20 Time Stopped:: 12:15 Targeted Problem #:: 1 Type of Group:: Functional Skills Development Goal of Group:: To identify what gets in their way of recognizing and utilizing their strengths and identifying ways to make strengths easier to access. Client Response/Progress/Benefit:: Pt contributed to discussion and listened attentively to others. Pt worked cooperatively with peers during challenge activity. When processing activity pt reported it is much easier to look at the negative, which results in continuing to not identify or utilize one's strengths. Pt reported he understands the importance of identifying his positives, but struggles with actually following through on what he knows will be helpful. Pt seemed to benefit from identifying strategies that could help improve utilization of personal strengths on daily basis. Eye Contact:: Good Motor Activity:: Appropriate Appearance:: Casual Speech:: Appropriate Mood:: Anxious, Dysthymic Affect:: Constricted Thoughts:: Linear, Logical, No evidence of hallucinations/delusions noted Staff Interventions:: Therapist utilized an activity as a tool in helping client?s recognize the things that can get in their way from utilizing their strengths. Therapist processed the activity, helping others connect challenges that keep them from recognizing and using their strengths. Therapist provided support by using active listening and providing feedback.
--- NOTE | 2018-03-04 15:54 | BH.MDN ---
Multi-Disciplinary Note - Note 30-min Individual Time Started:: 09:20 Date: 03/04/18 Purpose of session/treatment goals addressed:: Purpose of session was to assess pt's current symptoms and stressors. Other topics included: processing recent medical problems, challenging distorted thoughts and reframing. Eye Contact:: Good Motor Activity:: Appropriate Appearance:: Casual Speech:: Appropriate Mood:: Anxious, Dysthymic Affect:: Congruent Thoughts:: Linear, Logical, No evidence of hallucinations/delusions noted Staff Interventions:: Therapist used open ended questions to elicit client's current symptoms and stressors. Therapist processed client's experience of his emergency gall bladder surgery. Therapist assisted client with identifying distorted thoughts he has in regards to the health concerns that are contributing to client struggling to move past what had happened. Therapist provided support by using active listening and validating emotions. Client Response:: Client reported around Alessandra break is when he started to experience increased physical pain and vomiting. Client reported as he symptoms continued to worsen over a week period he eventually went to the hospital and a cat scan showed his gall bladder was inflamed . A couple days later client reported after more tests he was transferred to a different hospital which then completed gallbladder surgery and pancreatitis surgery. Client shared he was in the hosptial for two more days after the surgery. Client reported he remembers being more patient about waiting for the next step in his recovery and is not nearly as patient with himself when it comes to recovery with his mental illness. Client connected he did have thoughts like Am I ever going to get better? Will this get better?. Client connected he still has those same thoughts but now towards his mental health, but becomes more frustrated compared to when he was going through physical pain. Client able to challenge his distorted thought that he knows he will get better if he continues to work on moving forward and using his skills consistently. Risks/Concerns:: Client does not present any risks or concerns at this time. Progress Toward Goals/Plan:: Client progressing with decreased intensity of depressive symptoms. Client continuing to struggle with moderate depressive and anxious symptoms, but is focusing on incorporating exercise and activity back into his weekly routine. client has improved awareness of his negative thought patterns and ability to reframe has improved as well. Client to continue IOP to stablize moods, maintain gains and improve daily functioning. Time Stopped:: 09:55
--- NOTE | 2018-03-07 15:32 | BH.SGPN_ITS ---
Service Group Progress Note - Session Psychotherapy Session #2 Date Open:: 03/07/18 group members Time Started:: 10:13 Time Stopped:: 11:13 Targeted Problem #:: 1 Type of Group:: Illness Management Goal of Group:: The goal of group was to increase understanding of goals and goal setting and practice a method of goal setting. Client Response/Progress/Benefit:: Client responded well to session, providing good insight to discussion. Client appeared to connect with the quote stating if you are only focused on checking things off a list, your goals won?t bring you purpose. Client shared goals are important because they give a person purpose, direction, and motivation. Client reported one can be too ?goal- oriented? which could lead to not living in the moment. Client shared he does not set many long-term goals, but responds well to short-term goals to help keep him moving forward. Client provided good insight to the discussion of SMART goals and helped the group establish realistic goals during the activity. Client appeared to benefit from increasing awareness of the importance of goal setting. Progress noted in client's improved mood and generalization of healthy coping skills. Eye Contact:: Good Motor Activity:: Appropriate Appearance:: Neat Speech:: Appropriate Mood:: Euthymic Affect:: Congruent - laughing and joking with peers. Thoughts:: Linear, No evidence of hallucinations/delusions noted Staff Interventions:: Therapist facilitated group discussion about goals and goal setting. Therapist taught group the acronym SMART (Specific, Measurable, Achievable, Realistic, Timely) as a tool to help with goal setting. Therapist led the group in an activity to be used as a method of practicing goal setting. Therapist provided the group with a small beach ball and explained their goal was to keep the ball in the air for as long as possible. Therapist guided the group through the SMART acronym as group was participating in activity. Psychotherapy Session #3 Date Open:: 03/07/18 group members Time Started:: 11:23 Time Stopped:: 12:18 Targeted Problem #:: 1 Type of Group:: Functional Skills Development Goal of Group:: The goal of group was to identify a goal for the week, explore the potential barriers to achieving that set goal, and identify strategies to overcome barriers. Client Response/Progress/Benefit:: Client responded well to session, active participant. Client reported the activity helped him recognize it is not a bad thing to adjust one?s goals based on current functioning. Client identified his goal for the week as jogging 4-5 days per week for at least 20 minutes, then reevaluate and lengthen or shorten the time. Client shared he has already started working on this goal and reported it has been helping his anxiety ? tremendously.? Client identified his barriers as weather, injury, and anxiety. Client identified solutions for his obstacles such as having the treadmill as a backup, slowly increasing time and speed to avoid injury, and asking his for support and reminding himself of past successes to overcome anxiety before jogging. Client appeared to benefit from identifying a goal for the week as well as problem-solving his barriers. Client to continue IOP to promote gains and reduce anxiety. Eye Contact:: Good Motor Activity:: Appropriate Appearance:: Neat Speech:: Appropriate Mood:: Euthymic Affect:: Congruent Thoughts:: Linear, No evidence of hallucinations/delusions noted Staff Interventions:: Therapist explained goal setting activity to group. Therapist provided each group member with a piece of paper and asked them to write down a goal they would like to accomplish over the weekend. Therapist then asked each member to draw a path to their goal and identify barriers that could potentially get in the way of their goal. Therapist led group in processing their goal maps and had them come up with strategies to overcome the barriers. Therapist provided support by using reflective listening.
--- NOTE | 2018-03-07 17:08 | BH.SGPN ---
Service Group Progress Note - Session Psychotherapy Session #1 Date Open:: 03/07/18 Time Started:: 09:03 Time Stopped:: 10:01 Targeted Problem #:: 1 Type of Group:: Process - 7 participants Goal of Group:: The goal of group was to check-in on clients mood, stressors and positives, review homework and introduce the topic of the day. Client Response/Progress/Benefit:: Client responded well to session and remained an active participants throughout. He discussed experiencing a lot of anxiety over the weekend which Client attributes to preparing the house for his daughter's upcoming graduation green party. Client shared that although he had experienced ongoing anxiety over ther weekend, he was able to successfully manage his symptoms and prevent further escalation. Client reports that reminding himself to take things slowly and focus on one task at a time rather than the entire to-do list helps to decrease stress associated. Client additionally shared recently re-engaging in jogging which has been exciting as client had forgetten how much he enjoys the activity and is anlso finding that it is helping to improve overall mental health symptoms. Client benefitted from identifying and processing the skills he finds most beneficial when utilizing outside of group to manage symptoms. Recommended continued IOP to increase consistency of implementation of thought challenging and emotion regulation skills. Eye Contact:: Good Motor Activity:: Appropriate Appearance:: Casual Speech:: Appropriate Mood:: Euthymic, Anxious Affect:: Full, Congruent Thoughts:: Linear, Logical, No evidence of hallucinations/delusions noted Staff Interventions:: Therapist used open-ended questions to elicit information about client's current stressors and mood state. Therapist was supportive by using active listening and reflection. Therapist utilized a quote related to confidence as an aid in introducing the topic of the day and facilitated discussion of quote.
--- NOTE | 2018-03-07 17:21 | BH.SGPN_ITS ---
Service Group Progress Note - Session Psychotherapy Session #1 Date Open:: 03/07/18 Time Started:: 09:03 Time Stopped:: 10:01 Targeted Problem #:: 1 Type of Group:: Process - 7 participants Goal of Group:: The goal of group was to check-in on client?s mood, stressors and positives, review homework and introduce the topic of the day. Client Response/Progress/Benefit:: Client responded well to session and remained an active participants throughout. He discussed experiencing a lot of anxiety over the weekend which Client attributes to preparing the house for his daughter's upcoming graduation constitution party. Client shared that although he had experienced ongoing anxiety over ther weekend, he was able to successfully manage his symptoms and prevent further escalation. Client reports that reminding himself to take things slowly and focus on one task at a time rather than the entire to-do list helps to decrease stress associated. Client additionally shared recently re-engaging in jogging which has been exciting as client had forgetten how much he enjoys the activity and is anlso finding that it is helping to improve overall mental health symptoms. Client benefitted from identifying and processing the skills he finds most beneficial when utilizing outside of group to manage symptoms. Recommended continued IOP to increase consistency of implementation of thought challenging and emotion regulation skills. Eye Contact:: Good Motor Activity:: Appropriate Appearance:: Casual Speech:: Appropriate Mood:: Euthymic, Anxious Affect:: Full, Congruent Thoughts:: Linear, Logical, No evidence of hallucinations/delusions noted Staff Interventions:: Therapist used open-ended questions to elicit information about client's current stressors and mood state. Therapist was supportive by using active listening and reflection. Therapist utilized a quote related to confidence as an aid in introducing the topic of the day and facilitated discussion of quote.
--- NOTE | 2018-03-09 10:58 | BH.SGPN ---
Service Group Progress Note - Session Psychotherapy Session #1 Date Open:: 03/09/18 Time Started:: 09:08 Time Stopped:: 09:58 Targeted Problem #:: 1 Type of Group:: Process - 6 group members Goal of Group:: The goal of today's group was to check-in with client's mood, stressors, and positives, review homework and introduce topic for the day. Client Response/Progress/Benefit:: Pt reported yesterday was his daughter's last day in high school and will be graduating this weekend. Pt shared he can't believe how fast time goes by and soon enough all his children will be graduated. Pt reported he has pinpointed that he is most anxious in the morning. Pt shared overall jogging has been helpful in decreasing his symptoms, but yesterday he tried jogging when feeling anxious and it didn't help. Pt reported he just had to push through the anxiety and go on with his day, which did work. Pt identified feeling anxious this morning, unable to identify trigger to anxiety. Pt progress is variable as evidenced by pt reporting progress with the jogging helping, but seems to get hard on himself when the coping skill doesn't work perfectly. Eye Contact:: Good Motor Activity:: Appropriate Appearance:: Casual Speech:: Appropriate Mood:: Anxious, Dysthymic Affect:: Congruent Thoughts:: Linear, Logical, No evidence of hallucinations/delusions noted Staff Interventions:: Therapist used open-ended questions to elicit information about client's current stressors and mood state. Therapist was supportive by using active listening and reflection.
--- NOTE | 2018-03-09 14:31 | BH.SGPN_ITS ---
Service Group Progress Note - Session Psychotherapy Session #2 Date Open:: 03/09/18 - 5 group members Time Started:: 10:11 Time Stopped:: 11:06 Targeted Problem #:: 1 Type of Group:: Illness Management Goal of Group:: The goal of group was to increase understanding of coping strategies and impact problems have on self. Another goal was to practice utilizing coping skills in the moment. Client Response/Progress/Benefit:: Client responded well to session, participating in discussion. Client connected with the quote sharing there will always be problems, it?s how you manage them that matters.? Client reported one learns healthy and unhealthy coping skills from family, peers, and experiences. Client was passive in the activity, but appeared to connect that having a good base and balance of coping skills is important for mental wellness. Client shared coping skills are more about quality than quantity. Client agreed with group that one's coping skill base should include internal and external supports. Client shared his base is not balanced as client relies on his external supports more than using internal skills which can be a negative when his supports are not available. Client appeared to benefit from increasing awareness of how coping skills impact mental health. Client to continue IOP to increase mood stability and reduce anxiety. Eye Contact:: Fair Motor Activity:: Appropriate Appearance:: Neat Speech:: Appropriate Mood:: Dysthymic Affect:: Flat Thoughts:: Linear, No evidence of hallucinations/delusions noted Staff Interventions:: Therapist facilitated the group discussion about coping strategies. Therapist provided group members with folders and gave them the challenge to work together and build the tallest tower with the given supplies. Therapist utilized the activity as a tool to process what it feels like when dealing with problems and what strategies they used to cope throughout activity. Psychotherapy Session #3 Date Open:: 03/09/18 - 6 group members Time Started:: 11:15 Time Stopped:: 12:15 Targeted Problem #:: 1 Type of Group:: Functional Skills Development Goal of Group:: Goal was to increase client?s self-awareness on their use of coping strategies and increase repertoire of healthy coping strategies. Client Response/Progress/Benefit:: Client responded well to session, passive participant at times. Client reported he often relies on his external supports when he is having a difficult time and forgets to use his internal coping. However, shared ?I?m getting better at using thought challenging and deep breathing.? Client helped the group process the pros and cons of the categories of coping skills and reported ?you have to have a balance of them all.? Client created a coping skills menu to increase his repertoire of healthy skills including: playing games and doing puzzles, walking on grass barefoot, making people laugh, running and listening to the [employer], and writing down negative thoughts to challenge them. Client appeared to benefit from improving his awareness of the different types of coping skills as well as increasing his coping skill repertoire. Progress noted in client's increased awareness and implementation of coping skills, but continues to have unrealistic expectations of self which increases negative thinking. Eye Contact:: Fair Motor Activity:: Appropriate Appearance:: Disheveled Speech:: Appropriate Mood:: Dysthymic Affect:: Constricted Thoughts:: Linear, No evidence of hallucinations/delusions noted Staff Interventions:: Therapist facilitated discussion about the different types of coping skills. Therapist led group in an activity in which group members were asked to brainstorm coping strategies that fit in each coping skill category. Therapist reviewed each coping strategy with the group and led a discussion about whether the coping strategies identified were healthy or unhealthy. Therapist provided homework in which group members creating a coping skills menu and would practice two skills a day.
--- NOTE | 2018-03-09 15:08 | BH.MDN_ITS ---
Multi-Disciplinary Note - Note 45-min Individual Time Started:: 12:15 Date: 03/09/18 Purpose of session/treatment goals addressed:: Purpose of session was to assess pt's current symptoms and stressors. Other topics included: challenging distorted thoughts and routines. Eye Contact:: Good Motor Activity:: Appropriate Appearance:: Casual Speech:: Appropriate Mood:: Anxious, Dysthymic, Other - tearful Affect:: Congruent Thoughts:: Linear, Logical, No evidence of hallucinations/delusions noted Staff Interventions:: Therapist used open ended questions to elicit pt's current symptoms and stressors. Therapist processed pt's week, challenging pt's distorted thought patterns in the moment. Therapist reviewed consequences of high expectations of self and elicited pt's view of his treatment progress thus far. Therapist elicited pt's current morning routine and assisted pt in creating a more consistent routine for every morning. Client Response:: Pt was cooperative and engaged thoughout individual session. Pt reported yesterday was a rougher day because his anxiety was extreme in the morning and when he jogged it didn't help bring his anxiety level down. Pt able to recognize with coaching that he is feeling more detached and down today because he is being too critical of himself due to the jogging not working yesterday. Pt reported on Wednesday going jogging made a drastic difference in his anxiety, but when the jogging didn't work yesterday he felt defeated and discouraged. Pt admitted he often has high expectations of himself, which he logically recognizes doesn't help him. Pt stated that he knows he needs to work on being less critical of himself, shared he notices when something doesn't go right his first question is what did I do wrong. Pt able to reframe this pattern of thinking to more positive focus, recognizing importance of challenging current way of thinking. When reviewing morning routine, pt shared currently he doesn't really have much of a routine. Stated he wakes up at 6:30am , but doesn't get out of bed until around 8:00am when the kids leave for school then each morning differs on what he does. With coaching pt able to connect how staying in bed for over an hour each morning likely is making his anxiety worse. Pt shared he doesn't like to be around everyone in the morning because everyone has a typical routine, but he no longer does since he can't work. Pt able to create a new morning routine to follow each day. Pt agreeable to practice new morning routine. Risks/Concerns:: Pt denies SI/HI plan or intention to date. Pt's family is a protective factor. Progress Toward Goals/Plan:: Pt is demonstrating progress with increased use of healthy coping strategies, increased ability to recognize and reframe negative thought patterns, and recently able to push through anxious and depressive symptoms instead of reverting back to old coping skills. Pt has a difficult time recognizing his successes and progress, but with coaching able to see that he has made progress since starting IOP. Pt to continue IOP to maintain gains and prevent decompensation. Time Stopped:: 13:00
--- NOTE | 2018-03-10 14:33 | BH.SGPN_ITS ---
Service Group Progress Note - Session Psychotherapy Session #3 Date Open:: 03/04/18 Time Started:: 11:20 Time Stopped:: 12:15 Targeted Problem #:: 1 Type of Group:: Functional Skills Development Goal of Group:: To identify what gets in their way of recognizing and utilizing their strengths and identifying ways to make strengths easier to access. Client Response/Progress/Benefit:: Pt contributed to discussion and listened attentively to others. Pt worked cooperatively with peers during challenge activity. When processing activity pt reported it is much easier to look at the negative, which results in continuing to not identify or utilize one's strengths. Pt reported he understands the importance of identifying his positives, but struggles with actually following through on what he knows will be helpful. Pt seemed to benefit from identifying strategies that could help improve utilization of personal strengths on daily basis. Eye Contact:: Good Motor Activity:: Appropriate Appearance:: Casual Speech:: Appropriate Mood:: Anxious, Dysthymic Affect:: Constricted Thoughts:: Linear, Logical, No evidence of hallucinations/delusions noted Staff Interventions:: Therapist utilized an activity as a tool in helping client ???s recognize the things that can get in their way from utilizing their strengths. Therapist processed the activity, helping others connect challenges that keep them from recognizing and using their strengths. Therapist provided support by using active listening and providing feedback.
--- NOTE | 2018-03-16 14:40 | BH.SGPN ---
Service Group Progress Note - Session Psychotherapy Session #3 Date Open:: 18 - 9 group members Time Started:: 11:25 Time Stopped:: 12:15 Targeted Problem #:: 1 Type of Group:: Functional Skills Development Goal of Group:: To rehearse resilient factors and identify ways to maintain resilience despite hardships and stressors. Client Response/Progress/Benefit:: Client responded well to session, quiet, but providing insight when prompted. Client participated in an activity aimed to rehearse resiliency factors. Client shared the group used communication, new ideas, and persistence which helped them be resilient in the activity. Client reported it is important to recognize one's one resiliency traits for when the road is dark. Client shared his family support, hope, and learning from others helps client maintain resilience despite hardships. Client appeared to benefit from identifying ways to maintain resiliency during hardships and receiving support from peers. Client progressing as shown by increased awareness of cognitive distortions, but can continue to benefit from challenging unrealistic expectations which keeps client stuck. Eye Contact:: Fair Motor Activity:: Appropriate Appearance:: Neat Speech:: Appropriate Mood:: Anxious Affect:: Flat Thoughts:: Linear, No evidence of hallucinations/delusions noted Staff Interventions:: Therapist led group in an activity in which group members were challenged to stay resilient despite various stressors and hardships added to activity. Therapist provided each group member with a stress ball and used stress ball as a tool to discuss factors of resilient personality. Therapist provided group members with a handout about the building blocks of resilience. Therapist provided support by using reflective listening.
--- NOTE | 2018-03-16 15:09 | BH.SGPN ---
Service Group Progress Note - Session Psychotherapy Session #1 Date Open:: 03/16/18 Time Started:: 09:10 Time Stopped:: 10:10 Targeted Problem #:: 1 Type of Group:: Process - 10 group members Goal of Group:: The goal of today's group was to check-in with client's mood, stressors, and positives, review homework and introduce topic for the day. Client Response/Progress/Benefit:: Client reported his daughter granduated on Wednesday which he is excited for her. Client shared over the weekend his depressive and anxious symptoms were overall stable or at least manageable. Client reported he went jogging this weekend which seemed to help reduce any anxiety he was feeling. Client shared this morning he woke up feeling really anxious for no apparant reason. client recognized he needs to be more consistent with following a morning routine which could help reduce his anxiety in the mornings. client seemed to benefit from epxressing thoughts and feelings. Progress noted with client reporting more stable moods over weekend, however continues to express anxious mornings with little relief when uses healthy coping skills. client to continue IOP level of care to reduce anxious and depressive symptoms, improve daily functioning, and prevent decompensation. Eye Contact:: Good Motor Activity:: Restless Appearance:: Casual Speech:: Appropriate Mood:: Anxious, Dysthymic Affect:: Constricted Thoughts:: Linear, Logical, No evidence of hallucinations/delusions noted Staff Interventions:: Therapist used open-ended questions to elicit information about client's current stressors and mood state. Therapist was supportive by using active listening and reflection.
--- NOTE | 2018-03-30 16:19 | BH.MDN_ITS ---
Multi-Disciplinary Note - Note 45-min Individual Time Started:: 10:20 Date: 03/16/18 Purpose of session/treatment goals addressed:: Purpose of session was to assess current symptoms and stressors. Other topics: processing manic episode and challenging negative thoughts. Eye Contact:: Good Motor Activity:: Restless Appearance:: Disheveled, Casual Mood:: Anxious, Dysthymic, Other - tearful Affect:: Congruent Thoughts:: Linear, Logical, No evidence of hallucinations/delusions noted Staff Interventions:: Therapist used open ended questions to elicit client's current symptoms and stressors. Therapist processed client's experience of the manic episode. Therapist assisted client with identifying distorted thoughts he has in regards to the manic episode that are contributing to client struggling to move past what had happened. Therapist provided support by using active listening and validating emotions. Client Response:: Client walked through everything he could remember from what before his manic episode all the way until his psychiatric inpatient hospitalization. Client reported he quickly started to have different behavior after taking his percoceut that he got after having surgery. Client reported at first he just noticed he was more talkative and had a lot of energy. Client shared something he noted that was odd for him was he started using cuss words which is something he rarely does. client shared he started to have really large ideas of refinancing the house and buying a new car, but luckily reported he only spend less than $500 throughout his manic episode. Client shared he went to see his psychiatrist after he tried to buy the new car because his knew something wasn't right. Client shared he was put on a new medication that briefly helped, but then started to only sleep 2-3 hours a night. Client reported he went to the ER after only sleeping 3 hours in a 3 day period, but when at the ER nothing helpful occured. Client shared once he returned home from the ER he was being extremely bizarre around his children asking them to tell him they love him. Client shared at that point is when he went to [facility] and was admitted inpatient. Client reported the most difficult part for him to get over is his bizarre behavior around his children. Client able to challenge the negative thoughts he has towards himself in regards to what happened during manic episode. Able to recognize his thought I' m not a good father as distorted and untrue. Risks/Concerns:: Client does not currently present with any risks or concerns. Progress Toward Goals/Plan:: Client demonstrating progress with being able to recognize distorted and negative thought patterns with ability to reframe those thoughts. client also showing progress with utilizing healthy coping skills like jogging when starting to feel anxious. Client continues to struggle with anxiety specifically in the mornings with no apparant trigger. Client to continure IOP level of care to decrease anxiety, improve daily functioning and prevent decompesnation. Time Stopped:: 11:00
--- NOTE | 2018-04-14 11:25 | BH.SGPN_ITS ---
Service Group Progress Note - Session Psychotherapy Session #2 Date Open:: 03/02/18 Time Started:: 10:20 Time Stopped:: 11:15 Targeted Problem #:: 1 Type of Group:: Illness Management Goal of Group:: To increase understanding of what boundaries are and the different ways of setting boundaries (permeable, rigid, and flexible). Another goal was increase self-awareness of current boundaries. Client Response/Progress/Benefit:: Client alert and oriented, contributed to discussion and listened attentively to others. Client connected with quote reported setting boundaries can be extremely challenging especially if you try to be a people pleaser. Client reported he used to be more of a people pleaser in which he would be everyone else first, but has tried to focus on himself as well. Client seemed to benefit from increasing awareness of how setting permeable boundaries opens him up to being taking advantage of and impacts his mental health negatively. Eye Contact:: Good Motor Activity:: Appropriate Appearance:: Casual Speech:: Appropriate Mood:: Dysthymic Affect:: Congruent Thoughts:: Linear, Logical, No evidence of hallucinations/delusions noted Staff Interventions:: Therapist facilitated group discussion about defining boundaries. Therapist educated the group about the three different ways of setting boundaries and led discussion about each one. Therapist facilitated activity, asking group members to either draw or create something that represents their current way of setting boundaries. The activity was used as a tool to help increase clients self-awareness of their boundaries. Psychotherapy Session #3 Date Open:: 03/02/18 Time Started:: 11:25 Time Stopped:: 12:15 Targeted Problem #:: 1 Type of Group:: Functional Skills Development Goal of Group:: To identify the importance of boundaries and identifying skills to help increase healthy boundaries. Client Response/Progress/Benefit:: Client engaged throughout session AEB commenting on others comments and sharing his thoughts and ideas. Client shared he currently is a mix between flexible and permeable boundary setting, moving towards a more flexible style because recognizes this is more healthy for him. Client reported he has to reflect on times he has allowed others to take advantage of his kindness and focus on setting more firm boundaries when needed. Client seemed to benefit from handout detailing signs of unhealthy boundaries as well as group identifying various strategies that can help improve healthy boundary setting. Eye Contact:: Good Motor Activity:: Appropriate Appearance:: Casual Speech:: Appropriate Mood:: Dysthymic Affect:: Congruent Thoughts:: Linear, Logical, No evidence of hallucinations/delusions noted Staff Interventions:: Therapist facilitated the group discussion about importance of setting and maintaining boundaries. Therapist provided support by using reflective listening and giving feedback. Therapist processed client's view of how they currently set boundaries. Therapist inquired how client's current way of setting boundaries impacts them. Therapist elicited what client' s would change about the way currently set boundaries. Therapist provided feedback to group members.
== END 2018-03-17 23:59 ==
LOC: BHIOP 10:17
PROVIDERS: Family Provider Family Medicine; PCP Family Medicine; Visit Provider Psychiatry & Neurology Psychiatry
DX: F31.4 Bipolar disorder, current episode depressed, severe, without psychotic features (principal); F41.9 Anxiety disorder, unspecified; L27.0 Generalized skin eruption due to drugs and medicaments taken internally; T42.6X5A Adverse effect of other antiepileptic and sedative-hypnotic drugs, initial encounter; T43.595A Adverse effect of other antipsychotics and neuroleptics, initial encounter; G25.71 Drug induced akathisia; Z79.899 Other long term (current) drug therapy
CPT/HCPCS: H0035; 90832; 90834; 90853

== ENCOUNTER 2018-03-18 09:00 | Outpatient (RCR) | payer OTHER, SELFPAY ==
--- NOTE | 2018-03-18 11:47 | BH.SGPN ---
Service Group Progress Note - Session Psychotherapy Session #1 Date Open:: 03/18/18 Time Started:: 09:08 Time Stopped:: 09:59 Targeted Problem #:: 1 Type of Group:: Process Goal of Group:: The goal of today's group was to check-in with client's mood, stressors, and positives, review homework and introduce topic for the day. Client Response/Progress/Benefit:: Client reported he is feeling nervous because his daughter's graduation constitution party is coming up. Client reported he was more anxious yesterday throughout the day but is unable to identify a specific trigger or cause to the increased anxiety. Client recognizes the need to continue challenge his anxious thought patterns and focus on the here and now versus worrying about what might happen or that he is never going to get better. Client seemed benefit from support from peers. Client progress variable with having good insight however struggles with utilizing skills in the moment. Client to continue IOP to prevent decompensation, decrease anxiety, and stabilize mood. Eye Contact:: Good Motor Activity:: Restless Appearance:: Casual Speech:: Appropriate Mood:: Anxious Thoughts:: Linear, Logical, No evidence of hallucinations/delusions noted Staff Interventions:: Therapist used open-ended questions to elicit information about client's current stressors and mood state. Therapist was supportive by using active listening and reflection.
--- NOTE | 2018-03-18 14:25 | BH.SGPN_ITS ---
Service Group Progress Note - Session Psychotherapy Session #2 Date Open:: 03/18/18 - 8 group members Time Started:: 10:10 Time Stopped:: 11:00 Targeted Problem #:: 1 Type of Group:: Illness Management Goal of Group:: To increase understanding of what stress is, identify current life stressors, and connect impact stressors have on mental health. Client Response/Progress/Benefit:: Client responded well to session, participating in discussion. Client appeared to connect with the quote, stating , your thoughts aren't always true. Client reported he related to the way stress impacts emotions and behaviors such as feeling on edge. Client identified stressors in his life including: depression, anxiety, and dealing with racing thoughts. Client reported his stress is not overwhelming currently, but when it is client isolates, catastrophizes, and has racing thoughts. Client appeared to benefit from increasing awareness of how stress impact mental wellness. Client has demonstrated progress with implementing coping skills, but continues to report a depressed mood and intrusive thoughts. Client to continue IOP to prevent decompensation. Eye Contact:: Fair Motor Activity:: Slowed Appearance:: Neat Speech:: Appropriate Mood:: Anxious, Depressed Affect:: Flat Thoughts:: Linear, Logical, No evidence of hallucinations/delusions noted Staff Interventions:: Therapist facilitated discussion about stress. Therapist facilitated an activity in which group members were asked to identify various stressors they have in their life currently. Therapist instructed group members to indicate if certain stressors were larger than others. Therapist led processing of each member?s stress jar and helped them connect impact the stress has on their mental health. Psychotherapy Session #3 Date Open:: 03/18/18 - 7 group members Time Started:: 11:10 Time Stopped:: 12:00 Targeted Problem #:: 1 Type of Group:: Functional Skills Development Goal of Group:: To identify what stressors clients have control over and what stressors have no control over. Another goal was to increase repertoire of healthy strategies to help manage stress. Client Response/Progress/Benefit:: Client responded well to session, engaged, but less vocal than previous sessions. Client stated the activity helped client realize there are coping skills to help reduce stress such as prioritizing stressors and using help from supports. Client shared his negative thinking is both in and out of client's control. Client stated he cannot control his negative thoughts, but he can control how he challenges them. Client helped the group identify strategies to reduce stress. Client appeared to benefit from identifying strategies to reduce stress. Client to continue IOP to prevent decompensation and reduce depressive symptoms. Eye Contact:: Fair Motor Activity:: Slowed Appearance:: Casual Speech:: Appropriate Mood:: Anxious, Depressed Affect:: Flat Thoughts:: Linear, No evidence of hallucinations/delusions noted Staff Interventions:: Therapist facilitated discussion about control versus no control and helped group members connect the concept to stressors. Therapist led discussion about importance of putting forth more energy on those stressors they can control. Therapist led group activity that provided participants opportunity to utilize stress management strategies in the moment. Therapist facilitated brainstorming of strategies to help manage stress level. Therapist provided support by using active listening and providing feedback.
--- NOTE | 2018-03-21 14:57 | BH.SGPN ---
Service Group Progress Note - Session Psychotherapy Session #1 Date Open:: 03/21/18 Time Started:: 09:07 Time Stopped:: 10:20 Targeted Problem #:: 1 Type of Group:: Process - 9 participants Goal of Group:: The goal of today's group was to check-in with clients and review homework from previous group session. Client Response/Progress/Benefit:: Client responded well to session and was able to engage in current thoughts and emotions with the group. He discussed currently struggling to combat his negative thinking patterns, specifically upon first waking in the morning. He indicated that he has been experiencing the most difficulty in believing that he can overcome or turn these thoughts around. Client noted that he has been trying to challenge thoughts and look at the positives however often gets stuck back in the negative thinking cycle of this is too much work. I dont want to keep trying. Client discussed that he continues to try jogging or thinking of his family as a means of decreasing depressive symptoms which has helped somewhat. Client responded well to supportive feedback provided by fellow participants and appeared to benefit from the thought challenging ideas they have found helpful in their own lives. Client continues to make limited progress in his ability to combat negative and distorted thinking patterns and is recommended continued IOP to increase use of helpful thought challenging strategies and healthy coping skills. Eye Contact:: Fair Motor Activity:: Appropriate Appearance:: Casual Speech:: Appropriate Mood:: Depressed Affect:: Congruent Thoughts:: Linear, Logical, No evidence of hallucinations/delusions noted Staff Interventions:: Therapist facilitated the group session by asking open ended questions that encouraged group members to discuss their weekend and current mood state. Assisted group members in the review of their homework from previous group session.
--- NOTE | 2018-03-23 17:13 | BH.SGPN ---
Service Group Progress Note - Session Psychotherapy Session #2 Date Open:: 03/23/18 group members Time Started:: 10:17 Time Stopped:: 11:12 Targeted Problem #:: 1 Type of Group:: Illness Management Goal of Group:: To identify within self what is keeping client trapped from achieving better quality of life. Client Response/Progress/Benefit:: Client responded well to session, participating in discussion. Client connected with the quote sharing we build up ordonez with the way we cope and think. Client stated depression, anxiety, and fear of failing can keep a person stuck. Client able to connect how one's negative thoughts of self and distortions can make him feel trapped as well. Client identified negative thoughts keeping him trapped as Im not good enough, Im never going to get better, and Im never going to get back to work. Client shared it is hard for him to challenge these thoughts because they pop up all the time. Client appeared to benefit from gaining awareness of the thoughts keeping client from achieving mental wellness. Progress noted as client reports application of healthy coping skills, but continues to struggle with mood instability. Eye Contact:: Good Motor Activity:: Appropriate Appearance:: Casual Speech:: Appropriate Mood:: Depressed Affect:: Flat Thoughts:: Linear, Logical, No evidence of hallucinations/delusions noted Staff Interventions:: Therapist facilitated discussion about what is keeping clients stuck from moving toward mental wellness. Therapist assisted clients in connecting how thoughts can contribute to keeping clients stuck. Therapist led discussion about barriers clients face from making changes to help one move forward. Therapist provided support by using active listening and giving feedback to others. Psychotherapy Session #3 Date Open:: 03/23/18 group members Time Started:: 11:25 Time Stopped:: 12:20 Targeted Problem #:: 1 Type of Group:: Functional Skills Development Goal of Group:: To identify what client can do to release self from those things that are trapping them to find more peace and quality in everyday life. Client Response/Progress/Benefit:: Client responded well to session, active group member. Client selected Im failing my family as the negative thought keeping him most trapped. Client shared this thought keeps client from building stronger relationships with his family and increases isolation. Client stated the thought is unrealistic because there are many ways client helps his family and they enjoy being around client. Client reframed his thought to my family loves me and I am doing my best to be a good dad. Client stated the reframed thought would positively impact his mental health because he would find more enjoyment with family and feel happier. Client also helped the group identify strategies to reframe negative thinking. Client appeared to benefit from learning various strategies to challenge negative thinking. Client to continue IOP to prevent decompensation and improve mood. Eye Contact:: Good Motor Activity:: Appropriate Appearance:: Casual Speech:: Appropriate Mood:: Depressed Affect:: Flat Thoughts:: Linear, Logical, No evidence of hallucinations/delusions noted Staff Interventions:: Therapist used examples of maintenance cycles to help clients gain awareness of how negative thinking is keeping clients stuck. Therapist facilitated discussion about different strategies for challenging negative thoughts, assisting clients in connecting how the strategies could benefit them. Therapist provided clients with homework to focus on one thing that is keeping them stuck and identify small steps to start moving towards mental wellness.
--- NOTE | 2018-03-28 14:21 | BH.SGPN ---
Service Group Progress Note - Session Psychotherapy Session #2 Date Open:: 03/28/18 Time Started:: 10:15 Time Stopped:: 11:10 Targeted Problem #:: 1 Type of Group:: Illness Management Goal of Group:: To increase understanding and awareness of emotions connected to change and the impact those emotions can have on change. Client Response/Progress/Benefit:: Client contributed to discussion at times and listened attentively to others. Client connected with others that there is no right time to make a change because we often put off change by making an excuse. Client reported getting stuck in certain patterns and habits can make it really challenging for change because when gets comfortable with a certain way despite not being happy with the situation. Client connected with others that typically something has to occur that makes the current situation worse in order to push somebody towards change. Client seemed to benefit from learning about the change process and how change takes time as well as can decrease ability to perform at baseline. Eye Contact:: Good Motor Activity:: Appropriate Appearance:: Casual Speech:: Appropriate Mood:: Anxious, Dysthymic Affect:: Congruent Thoughts:: Linear, Logical, No evidence of hallucinations/delusions noted Staff Interventions:: Therapist facilitated group discussion about change. Therapist led the group in an activity in which the activity was utilized as a tool to increase clients awareness of emotions connected with change. Therapist led the processing of how each emotion was connected with change. Therapist provided psychoeducation process of change, helped group members apply it to their life. Therapist was supportive by providing feedback and using reflective listening. Psychotherapy Session #3 Date Open:: 03/28/18 Time Started:: 11:20 Time Stopped:: 12:15 Targeted Problem #:: 1 Type of Group:: Functional Skills Development Goal of Group:: To identify the challenges associated with making change and identify positive outcomes that have resulted from changes made in past. Client Response/Progress/Benefit:: Client engaged during challenge activity working cooperatively with peers, contributed positively discussion and listened attentively to others. When processing activity client reported making a personal change sometimes it is important to reassess ones goals because it unobtainable there is a high probability of not following through. Client identify one small change she is going to make is to get out of bed each morning whenever he wakes up and not leaving bed doing nothing. Client seemed to benefit from identifying one small change she is willing to make. Eye Contact:: Good Motor Activity:: Appropriate Appearance:: Casual Speech:: Appropriate Mood:: Anxious, Dysthymic Affect:: Congruent Thoughts:: Linear, Logical, No evidence of hallucinations/delusions noted Staff Interventions:: Therapist facilitated the group discussion about importance of setting and maintaining boundaries. Therapist led the group in role playing in which they would have the opportunity to practice setting boundaries. Therapist provided feedback to group members.
--- NOTE | 2018-03-28 14:53 | BH.SGPN ---
Service Group Progress Note - Session Psychotherapy Session #1 Date Open:: 03/28/18 - 8 group members Time Started:: 09:04 Time Stopped:: 10:02 Targeted Problem #:: 1 Type of Group:: Process Goal of Group:: The goal of today's group was to check-in with client's mood, stressors, and positives, and introduce topic for the day. Client Response/Progress/Benefit:: Client responded well to session, receptive to support from peers. Client reports feeling anxious today as client is coming down from the emotions of the weekend. Client shared his daughter's graduation constitution party was this and normally he would be anxious and stressed all day, but he took time for self-care by taking breaking, praying, and reminding himself I don't have to micromanage everything. Client shared the constitution party went well and his family had a lot of help cleaning up which reduced stress. Client reflected on progress sharing he enjoyed himself despite feeling stress. Client noted this as progress as in the past client would not allow himself to enjoy the moment, he would ruminate. Client appeared to benefit from acknowledging progress. Client to continue IOP as he reports improved use of coping skills and acceptance, but continues to struggle with ruminations and depressive symptoms. Eye Contact:: Fair Motor Activity:: Appropriate Appearance:: Neat Speech:: Appropriate Mood:: Anxious, Dysthymic Affect:: Flat Thoughts:: Linear, No evidence of hallucinations/delusions noted Staff Interventions:: Therapist used open-ended questions to elicit information about client's current stressors and mood state. Therapist was supportive by using active listening and reflection.
--- NOTE | 2018-03-28 15:06 | BH.SGPN_ITS ---
Service Group Progress Note - Session Psychotherapy Session #2 Date Open:: 03/21/18 Time Started:: 10:25 Time Stopped:: 11:15 Targeted Problem #:: 1 Type of Group:: Illness Management Goal of Group:: To increase understanding of pitfalls and impact can have on mental health. Client Response/Progress/Benefit:: Client more withdrawn compared to previous group sessions, quiet, contributed his thoughts and ideas at times. Client reported he recognizes there are certain pitfalls in his life that he needs to aware of the power those pitfalls have on him. Client worked cooperatively with others during challenge activity, recognized the importance of communication and awareness for group to be successful with avoiding pitfalls. Client seemed to benefit from learning about impact personal pitfalls can have on progress. Client progress variable AEB client reporting increase in negative thinking and depressive symptoms over past 4 days. Client to continue IOP level of care to decrease depressive symptoms and prevent decompensation. Eye Contact:: Fair Motor Activity:: Restless Appearance:: Casual Speech:: Appropriate Mood:: Anxious, Depressed Affect:: Constricted Thoughts:: Linear, Logical, No evidence of hallucinations/delusions noted Staff Interventions:: Therapist facilitated discussion about pitfalls and assisted group in identifying common pitfalls that can set you back. Therapist led group in an activity to help group understand impact pitfalls can have on oneself and identify strategies that could help you get back on the right path. Therapist provided support by using active listening and providing feedback. Psychotherapy Session #3 Date Open:: 03/21/18 Time Started:: 11:25 Time Stopped:: 12:15 Targeted Problem #:: 1 Type of Group:: Functional Skills Development Goal of Group:: To identify personal pitfalls and what keeps them stuck from moving forward. Client Response/Progress/Benefit:: Client more engaged compared to previous group session, contributed to discussion and listened attentively to others. Client identified his personal pitfalls to be: magnification of problems, self- absorption, all or nothing thinking, projecting negative outcome, negative thinking and self-pity. Client reported one small change he is willing to do is to challenge the negative thoughts with high emotional impact as those thoughts happen. Client shared the past 4 days his negative thoughts of increased drastically with no apparent trigger. Stated he is having a hard time managing his thoughts which reinforces depressive symptoms. Client seemed to benefit from identifying a small goal to help him avoid personal pitfalls. Eye Contact:: Fair Motor Activity:: Restless Appearance:: Casual Speech:: Appropriate Mood:: Depressed Affect:: Constricted Thoughts:: Linear, Logical, No evidence of hallucinations/delusions noted Staff Interventions:: Therapist facilitated activity in which group members were given the task to identify personal pitfalls and what keeps them stuck from moving past the pitfall. Therapist provided group members with the homework assignment of identifying strategies that can help them overcome pitfalls.
--- NOTE | 2018-03-29 17:14 | BH.SGPN_ITS ---
Service Group Progress Note - Session Psychotherapy Session #2 Date Open:: 03/23/18 group members Time Started:: 10:17 Time Stopped:: 11:12 Targeted Problem #:: 1 Type of Group:: Illness Management Goal of Group:: To identify within self what is keeping client trapped from achieving better quality of life. Client Response/Progress/Benefit:: Client responded well to session, participating in discussion. Client connected with the quote sharing we build up ordonez with the way we cope and think. Client stated depression, anxiety, and fear of failing can keep a person stuck. Client able to connect how one's negative thoughts of self and distortions can make him feel trapped as well. Client identified negative thoughts keeping him trapped as I?m not good enough , I?m never going to get better, and I?m never going to get back to work. Client shared it is hard for him to challenge these thoughts ?because they pop up all the time.? Client appeared to benefit from gaining awareness of the thoughts keeping client from achieving mental wellness. Progress noted as client reports application of healthy coping skills, but continues to struggle with mood instability. Eye Contact:: Good Motor Activity:: Appropriate Appearance:: Casual Speech:: Appropriate Mood:: Depressed Affect:: Flat Thoughts:: Linear, Logical, No evidence of hallucinations/delusions noted Staff Interventions:: Therapist facilitated discussion about what is keeping client?s stuck from moving toward mental wellness. Therapist assisted clients in connecting how thoughts can contribute to keeping clients stuck. Therapist led discussion about barriers clients face from making changes to help one move forward. Therapist provided support by using active listening and giving feedback to others. Psychotherapy Session #3 Date Open:: 03/23/18 - 8 group members Time Started:: 11:25 Time Stopped:: 12:20 Targeted Problem #:: 1 Type of Group:: Functional Skills Development Goal of Group:: To identify what client can do to release self from those things that are trapping them to find more peace and quality in everyday life. Client Response/Progress/Benefit:: Client responded well to session, active group member. Client selected I?m failing my family as the negative thought keeping him most trapped. Client shared this thought keeps client from building stronger relationships with his family and increases isolation. Client stated the thought is unrealistic because there are many ways client helps his family and they enjoy being around client. Client reframed his thought to my family loves me and I am doing my best to be a good dad.? Client stated the reframed thought would positively impact his mental health because he would find more enjoyment with family and feel happier. Client also helped the group identify strategies to reframe negative thinking. Client appeared to benefit from learning various strategies to challenge negative thinking. Client to continue IOP to prevent decompensation and improve mood. Eye Contact:: Good Motor Activity:: Appropriate Appearance:: Casual Speech:: Appropriate Mood:: Depressed Affect:: Flat Thoughts:: Linear, Logical, No evidence of hallucinations/delusions noted Staff Interventions:: Therapist used examples of maintenance cycles to help clients gain awareness of how negative thinking is keeping clients stuck. Therapist facilitated discussion about different strategies for challenging negative thoughts, assisting clients in connecting how the strategies could benefit them. Therapist provided clients with homework to focus on one thing that is keeping them stuck and identify small steps to start moving towards mental wellness.
--- NOTE | 2018-03-31 10:53 | BH.SGPN_ITS ---
Service Group Progress Note - Session Psychotherapy Session #2 Date Open:: 03/30/18 Time Started:: 10:25 Time Stopped:: 11:15 Targeted Problem #:: 1 Type of Group:: Illness Management Goal of Group:: To increase understanding how positive and negative forces in life can impact balance in life. Client Response/Progress/Benefit:: Client contributed to discussion and listened attentively to others. When processing the quote client shared he can connect with the quote because he does not believe growth will happen by chance he has to be willing to accept support from others. Client seemed to benefit from increasing awareness of all the different factors that go into personal growth. Client demonstrating progress as evidenced by client reporting decreased depressive symptoms as well as being more positively engaged throughout. Eye Contact:: Good Motor Activity:: Appropriate Appearance:: Casual Speech:: Appropriate Mood:: Euthymic Affect:: Congruent Thoughts:: Linear, Logical, No evidence of hallucinations/delusions noted Staff Interventions:: Therapist facilitated group discussion about the various forces of life and helped clients connect the impact they have on balance in life. Therapist led group in an experiential activity in which group members had to work together to balance an object and move it to a designated location. Therapist utilized the activity as a tool to process the challenges connected with balancing various forces. Psychotherapy Session #3 Date Open:: 03/30/18 Time Started:: 11:22 Time Stopped:: 12:15 Targeted Problem #:: 1 Type of Group:: Functional Skills Development Goal of Group:: To identify positive and negative forces in life and identify which forces are helping stability and which forces are contributing to instability. Client Response/Progress/Benefit:: Client active participant as evidenced by cooperating with others during activity and contributed to discussion. When processing activity client noted the importance of being open minded to others' ideas and listening to each other to help maintain balance and be successful. Client identified personal positive forces to include: Family, self talk, exercise, michael, combating negative thoughts, and celebrating success. Client reported his negative forces to include self blame, focusing on problem too much , and being too hard on himself. Client identified family and exercise to be the most impactful forces that are helping him feel more stable and moving forward. Client shared he does not feel like he is exactly where he needs to be but is starting to see that he is moving forward. Seemed to benefit from increasing awareness of his positive and negative forces as well as noting progress that he has seen himself. Eye Contact:: Good Motor Activity:: Appropriate Appearance:: Casual Speech:: Appropriate Mood:: Euthymic Affect:: Congruent Thoughts:: Linear, Logical, No evidence of hallucinations/delusions noted Staff Interventions:: Therapist provided group with an example of a scenario of a person and the individual???s positive and negative forces. Therapist provided each group member with a worksheet in which they were to identify five positive and five negative forces in their life. Therapist processed the activity with the group, helping others connect the impact certain forces have on their life balance.
--- NOTE | 2018-03-31 14:19 | BH.MDN_ITS ---
Multi-Disciplinary Note - Note 45-min Individual Time Started:: 09:05 Date: 03/30/18 Purpose of session/treatment goals addressed:: Purpose of session was to assess current symptoms and stressors. Other topics included: reviewing treatment progress, discussing discharge and aftercare, and maintaining progress plan. Eye Contact:: Good Motor Activity:: Appropriate Appearance:: Casual Speech:: Appropriate Mood:: Euthymic Affect:: Congruent Thoughts:: Linear, Logical, No evidence of hallucinations/delusions noted Staff Interventions:: Therapist used open ended questions to elicit pt's current symptoms and stressors. Therapist processed weekend with pt assisting pt with identifying positives. Therapist provided psychoeducation about anxiety continuum. Therapist elicited pt's thoughts about treatment progress and started discussion about discharging from [facility]. Therapist provided pt with homework to complete maintaining progress worksheet. Client Response:: Client reported he had a much better weekend and his week is going overall better so far. Client shared his daughter's graduation alliance party went much better than he expected. Reported he was able to enjoy himself, identfying being actively involved with engaging with guests to be one thing that helped him manage his anxiety. With assistance client able to recognize this is as progress because in the past he identified he might have isolated or withdrew from the crowd which would have increased his anxiety. Client shared he has had several occurrences of feeling a positive emotion and feeling more like himself. Client reported he does get frustrated when he feels good, but then experiences extreme anxiety for no apparent reason. Client shared it's like being given a candy bar and having it ripped from your hands. Client able to challenge thought that at least he is having some positive emotions where before he wasn't feeling anything positive. Client shared yesterday evening he started to feeling anxious so went for a jog which he reported did help reduce the anxiety a little. Client reported feeling a bit anxious about mulching his neighbors yard, stated he was ruminating about trying to make a plan so it is perfect. Client connected with anxiety continuum, increasing understanding it is okay to feel nervous and worry but experiencing panic wouldn't really match the situation of mulching a yard. Reported lately he has seen all anxiety as bad which likely makes him more anxious. Client reported he is noticing more treatment progress with decreased anxious and depressed symptoms. Client shared last week was a rough week, but is aware that he will have bad days but those bad days will not be forever. Client reported he is more efficient at reframing and challenging negatve and distorted thought patterns. Client open to completing a maintaining progress worksheet, verbalized it would be helpful to identify things he can do on a daily basis to help him maintain progress. Client agreeable to next week being his last week in IOP. Reported he would schedule with his outpatient therapist and psychiatrist for when he returns from vacation. Risks/Concerns:: there are no current risks or concerns for client. Progress Toward Goals/Plan:: Client demonstrating progress as evidenced by client reporting decreased anxiety and depressive symptoms. Client is continuing to identify and challenge negative and anxious thought patterns on a more consistent basis over weekend and this week. Client using coping strategies when feeling anxious or depressed and is putting forth effort to maintain a morning routine to help reduce anxiety in the mornings. Plan is for client to discharge from IOP next week unless additional stressors or decompensation occur. Continue IOP necessary to maintain gains and prevent decompensation. Time Stopped:: 09:48
--- NOTE | 2018-04-01 12:05 | BH.SGPN_ITS ---
Service Group Progress Note - Session Psychotherapy Session #1 Date Open:: 03/18/18 Time Started:: 09:08 Time Stopped:: 09:59 Targeted Problem #:: 1 Type of Group:: Process Goal of Group:: The goal of today's group was to check-in with client's mood, stressors, and positives, review homework and introduce topic for the day. Client Response/Progress/Benefit:: Client reported he is feeling nervous because his daughter's graduation constitution party is coming up. Client reported he was more anxious yesterday throughout the day but is unable to identify a specific trigger or cause to the increased anxiety. Client recognizes the need to continue challenge his anxious thought patterns and focus on the here and now versus worrying about what might happen or that he is never going to get better . Client seemed benefit from support from peers. Client progress variable with having good insight however struggles with utilizing skills in the moment. Client to continue IOP to prevent decompensation, decrease anxiety, and stabilize mood. Eye Contact:: Good Motor Activity:: Restless Appearance:: Casual Speech:: Appropriate Mood:: Anxious Thoughts:: Linear, Logical, No evidence of hallucinations/delusions noted Staff Interventions:: Therapist used open-ended questions to elicit information about client's current stressors and mood state. Therapist was supportive by using active listening and reflection.
--- NOTE | 2018-04-01 14:02 | BH.SGPN ---
Service Group Progress Note - Session Psychotherapy Session #1 Date Open:: 04/01/18 - 6 group members Time Started:: 09:05 Time Stopped:: 10:00 Targeted Problem #:: 1 Type of Group:: Process Goal of Group:: The goal of today's group was to check-in with client's mood, stressors, and positives and introduce topic for the day. Client Response/Progress/Benefit:: Client responded well to session, receptive to feedback. Client shared he has had a string of a few good days of alleviated depressive symptoms, which demonstrates progress. Client reported belief his recent medication switch contributed to his improved mood. Client shared today he feels a little anxious after his glasses broke this morning. Client reported he always over-worries especially when something throws off his routine. Client stated he has been using self-talk, problem-solving, and thought challenging to manage his ruminations this morning and it has been helpful so far. Client was receptive to ideas from the group on ways to manage anxious thinking. Client appeared to benefit from receiving supportive statements. Progress noted in client's reduced depression and improved outlook, but can continue to benefit from challenging negative thoughts. Eye Contact:: Good Motor Activity:: Appropriate Appearance:: Neat Speech:: Appropriate Mood:: Euthymic, Anxious Affect:: Congruent Thoughts:: Linear, Logical, No evidence of hallucinations/delusions noted Staff Interventions:: Therapist used open-ended questions to elicit information about client's current stressors and mood state. Therapist was supportive by using active listening and providing feedback.
--- NOTE | 2018-04-04 10:37 | BH.SGPN ---
Service Group Progress Note - Session Psychotherapy Session #1 Date Open:: 04/04/18 Time Started:: 09:10 Time Stopped:: 10:10 Type of Group:: Process - 8 group members Goal of Group:: The goal of today's group was to check-in with client's mood, stressors, and positives, and review homework. Client Response/Progress/Benefit:: Pt spoke with prompted however did not provide feedback to peers or participate in group discussion. Emotion for today is anxious. Shared with the group that his weekend and father's day went well. Spent the day with his son. Reports some somatic concerns which include jitteriness and restlessness. Woke at at 3am which restlessness with difficulty falling back to sleep. Continues to ruminate and catastrophisize events. Pt was able to fall asleep within 30 minutes. Tends to view any symptoms as regression and relapse. Progress noted as he was able to spend majority of weekend managing thoughts and mood effectively. Continues to struggles with negative thoughts. Plan to discharge this week. Will continue in IOP to maintain gains, complete family session, and prevent decompensation. Eye Contact:: Fair Motor Activity:: Appropriate Appearance:: Casual Speech:: Appropriate Mood:: Anxious, Depressed Affect:: Congruent Thoughts:: Linear, Logical, No evidence of hallucinations/delusions noted Staff Interventions:: Therapist used open-ended questions to elicit information about client's current stressors and mood state. Therapist was supportive by using active listening and reflection.
--- NOTE | 2018-04-04 10:54 | BH.SGPN_ITS ---
Service Group Progress Note - Session Psychotherapy Session #1 Date Open:: 04/04/18 Time Started:: 09:10 Time Stopped:: 10:10 Type of Group:: Process - 8 group members Goal of Group:: The goal of today's group was to check-in with client's mood, stressors, and positives, and review homework. Client Response/Progress/Benefit:: Pt spoke with prompted however did not provide feedback to peers or participate in group discussion. Emotion for today is anxious. Shared with the group that his weekend and father's day went well . Spent the day with his son. Reports some somatic concerns which include jitteriness and restlessness. Woke at at 3am which restlessness with difficulty falling back to sleep. Continues to ruminate and catastrophisize events. Pt was able to fall asleep within 30 minutes. Tends to view any symptoms as regression and relapse. Progress noted as he was able to spend majority of weekend managing thoughts and mood effectively. Continues to struggles with negative thoughts. Plan to discharge this week. Will continue in IOP to maintain gains, complete family session, and prevent decompensation. Eye Contact:: Fair Motor Activity:: Appropriate Appearance:: Casual Speech:: Appropriate Mood:: Anxious, Depressed Affect:: Congruent Thoughts:: Linear, Logical, No evidence of hallucinations/delusions noted Staff Interventions:: Therapist used open-ended questions to elicit information about client's current stressors and mood state. Therapist was supportive by using active listening and reflection.
--- NOTE | 2018-04-04 11:17 | BH.MDN_ITS ---
Multi-Disciplinary Note - Note 45-min Individual Time Started:: 09:10 Date: 03/23/18 Purpose of session/treatment goals addressed:: Purpose of session was to assess client's current symptoms and stressors. Other topics included: 6 steps to reduce distress over a thought. Eye Contact:: Fair Motor Activity:: Restless Appearance:: Casual Speech:: Appropriate Mood:: Anxious, Dysthymic Affect:: Constricted Thoughts:: Racing, Circular, No evidence of hallucinations/delusions noted Staff Interventions:: Therapist utilized open ended questions to elicit client' s current symptoms and stressors. Therapist processed client's current emotions and frustrations. Therapist reviewed last session's homework with client, processed how setbacks are normal experience. Therapist taught client 6 steps to reduce distress: recognize, just thoughts, accept and allow, float and feel, let time pass, and proceed. Therapist provided client with homework to practice the 6 steps for the unwanted intrusive thoughts that he experiences over next week. Therpaist provided support by using active listening and validating emotions. Client Response:: Client expressed frustration that he is continuing to experience increase in depressive and anxious symptoms throughout the week. Client reported he has been continuing to jog or walk several times throughout the week. Client shared he recognizes jogging does help a little with his anxiety, but doens't help as much as he'd thought it would. Client shared he keeps having thoughts that things will always be like this or I'm not going to get better. Client reported logically he knows he will get better, but in the moment when having thoughts like that trying to reframe and challenge just isn't working. Client shared sometimes challenging his thoughts or asking himself is this logical will help defeat the thought, but with certain thoughts that doesn't help. After reviewing the six steps for reducing unwanted thoughts client reported it seemed really challenging to be able to just let a thought be or to recognize it and not do anything. After walking through examples of using the various steps client reported he can see how not fighting certain thoughts might be beneficial. Client agreeable to try the different steps on reducing his unwanted thoughts. Client requested to see IOP psychiatrist if possible given he is using his healthy coping strategies, but continuing to have depressive and anxious symptoms with increased intensity. Risks/Concerns:: client does not report any current risks or concerns. Progress Toward Goals/Plan:: Client progress variable AEB days in which client' s symptoms are manageable and stable, but then experiences several days of increased depressive and anxious symptoms. Client reports utilizing his healthy coping skills of thought challenge, walking, jogging, and keeping a morning routine but is still not experiencing progress with decreased symptomalogy. Plan is for client to be reevaluated by IOP psychiatrist this Wednesday to assess if additional medication interventions are needed. Client to continue IOP level of care to prevent decompensation and stablize moods. Time Stopped:: 09:55
--- NOTE | 2018-04-04 14:22 | BH.SGPN_ITS ---
Service Group Progress Note - Session Psychotherapy Session #2 Date Open:: 04/04/18 group members Time Started:: 10:20 Time Stopped:: 11:17 Targeted Problem #:: 1 Type of Group:: Illness Management Goal of Group:: To identify the importance of change, increase understanding of difficulty of making change, identify what clients would like to make changes in and identify the barriers or obstacles that get in the way of change. Client Response/Progress/Benefit:: Client responded well to session, active participant. Client connected with quote, stating, amen to that? as client has spent a lot of time re-reading the past which kept client stuck from moving forward. Client reported now he realizes that ruminating does no good for client , and client reports he has made progress because of it. Client identified changes he would like to make this week as increase reading ability, continue to exercise, and accomplish tasks before going to the beach. Client shared these changes would reduce anxiety, help client feel prepared, and improve concentration. Client identified barriers to these goals such as depression, anxiety, and being ?hyper focused.? Client appeared to benefit from gaining awareness of the importance of change and identifying changes he would like to make this week. Progress noted as shown by client?s report of reduced anxiety and depression, but can continue to benefit from challenging intrusive thoughts. Eye Contact:: Good Motor Activity:: Appropriate Appearance:: Neat Speech:: Appropriate Mood:: Euthymic, Anxious Affect:: Congruent Thoughts:: Linear, Logical, No evidence of hallucinations/delusions noted Staff Interventions:: Therapist facilitated discussion about change and helped client?s make connections of why change is important. Therapist led group in an experiential activity which involved client?s identifying changes want to make and barriers that get in the way of making those changes. Therapist utilized activity as a tool to help client?s make connections of difficulties in making changes and identify what helps overcome barriers to change. Psychotherapy Session #3 Date Open:: 04/04/18 group members Time Started:: 11:23 Time Stopped:: 12:15 Targeted Problem #:: 1 Type of Group:: Functional Skills Development Goal of Group:: To identify specific barriers to an identified change clients want to make and identify ways to overcome those barriers. Client Response/Progress/Benefit:: Client responded well to session, active participant. Client connected to the activity sharing, ?you have to be willing to change and ask for help.? Client identified his goal for the week as getting things ready for the family beach vacation. Client stated he wants to make this change because it would give him a sense of accomplishment and reduce stress. Client's barriers were negative thinking, procrastination, and anxiety. Client helped the group create strategies to overcome these barriers such as challenging negative thoughts by looking at the evidence, setting small goals, asking questions to challenge ruminations such as ?is it helpful?? and taking on one task at a time. Client appeared to benefit from identifying strategies to overcome barriers. Client showing progress as evidenced by his report of improved coping and outlook on mental health, but can continue to benefit from maintenance. Eye Contact:: Good Motor Activity:: Appropriate Appearance:: Neat Speech:: Appropriate Mood:: Euthymic, Anxious Affect:: Constricted Thoughts:: Linear, Logical, No evidence of hallucinations/delusions noted Staff Interventions:: Therapist facilitated discussion about what helped the group overcome challenges that came about during the experiential activity. Therapist utilized the activity as a tool in relating those experiences to ways to overcome barriers with challenges in their life when trying to make change. Therapist group into smaller groups and had them brainstorm ways to overcome certain barriers to their identified change. Therapist provided support by using reflective listening and providing feedback.
--- NOTE | 2018-04-05 11:03 | BH.SGPN_ITS ---
Service Group Progress Note - Session Psychotherapy Session #2 Date Open:: 04/01/18 Time Started:: 10:12 Time Stopped:: 11:04 Targeted Problem #:: 1 Type of Group:: Illness Management - 6 participants Goal of Group:: The goal of group was to increase understanding of the benefits social support provides in mental health wellness. Another goal was to increase self-awareness of the barriers that prevent client to seeking support or utilizing the support they have. Client Response/Progress/Benefit:: Client responded well to session and appeared to connect with content discussed. He was able to engage in the discussion defining social supports and the impact they may have on mental health. CLient shared that supports help us to know we are not alone and can comfort us. CLient benefitted from the activity portion of the group as he was able to make connections between building a structure using only verbal ques and no images and communicating with supports. Client expressed that he can now see how it may be hard for supports to understand his anxiety if theyve never seen or experienced something similar. Client progress in his ability to focus on information discussed and apply this to his own life and mental health. Client recommended continued IOP tx to further improve implementation of skills and use of thought challenging strategies. Eye Contact:: Good Motor Activity:: Appropriate Appearance:: Casual Speech:: Appropriate Mood:: Euthymic, Anxious Affect:: Congruent Thoughts:: Linear, Logical, No evidence of hallucinations/delusions noted Staff Interventions:: Therapist led a group discussion about importance of social supports. Therapist facilitated an activity that required the group members to utilize support from each other. Therapist utilized the activity as a tool to connect the importance of accepting social support. Therapist provided support through reflective listening and giving feedback. Psychotherapy Session #3 Date Open:: 04/01/18 Time Started:: 11:12 Time Stopped:: 12:03 Targeted Problem #:: 1 Type of Group:: Functional Skills Development - 6 participants Goal of Group:: The goal of group was to increase understanding of the different types of social support. Another goal was to identify one type of support the client?s desire from their support system and brainstorm ways to best communicate these needs as well establish one small step towards achieving that support. Client Response/Progress/Benefit:: Client receptive to session and actively engaged throughout. He provided input and supportive feedback to the discussion. Client worked with fellow participants on identifying various types of supports that are needed to maintain mental health and the potential barriers to attaining this support. Client discussed connecting with another participant who shared not knowing what she needs all the time. CLient indicated that this has been one of the biggest areas of difficulty with his depression as he does not always know what will help or believes his supports cannot help because they dont understand. CLient benefitted from challenging this thought with the group and identifying potential ways a support could help without having to fully understand what the other person is going through. Client made progress in identifying he would like increase ongoing emotional support levels by setting up a plan for aftercare treatment now. Recommended continued IOP to further improve client symptom management as well as prevent decompensation. Eye Contact:: Good Motor Activity:: Appropriate Appearance:: Casual Speech:: Appropriate Mood:: Euthymic, Anxious Affect:: Congruent Thoughts:: Linear, Logical, No evidence of hallucinations/delusions noted Staff Interventions:: Therapist facilitated group discussion on the different types of social support and importance of each type of support. A social support worksheet, was utilized to give clients direction in identifying which type of support they desired, how it will help, and identifying the first small step towards the desired support. Therapist provided homework for each group member to try and accomplish the one small step each group member identified on the worksheet.
--- NOTE | 2018-04-05 15:00 | BH.SGPN_ITS ---
Service Group Progress Note - Session Psychotherapy Session #1 Date Open:: 03/21/18 Time Started:: 09:07 Time Stopped:: 10:20 Targeted Problem #:: 1 Type of Group:: Process - 9 participants Goal of Group:: The goal of today's group was to check-in with clients and review homework from previous group session. Client Response/Progress/Benefit:: Client responded well to session and was able to engage in current thoughts and emotions with the group. He discussed currently struggling to combat his negative thinking patterns, specifically upon first waking in the morning. He indicated that he has been experiencing the most difficulty in believing that he can overcome or turn these thoughts around. Client noted that he has been trying to challenge thoughts and look at the positives however often gets stuck back in the negative thinking cycle of ? this is too much work. I don?t want to keep trying?. Client discussed that he continues to try jogging or thinking of his family as a means of decreasing depressive symptoms which has helped somewhat. Client responded well to supportive feedback provided by fellow participants and appeared to benefit from the thought challenging ideas they have found helpful in their own lives. Client continues to make limited progress in his ability to combat negative and distorted thinking patterns and is recommended continued IOP to increase use of helpful thought challenging strategies and healthy coping skills. Eye Contact:: Fair Motor Activity:: Appropriate Appearance:: Casual Speech:: Appropriate Mood:: Depressed Affect:: Congruent Thoughts:: Linear, Logical, No evidence of hallucinations/delusions noted Staff Interventions:: Therapist facilitated the group session by asking open ended questions that encouraged group members to discuss their weekend and current mood state. Assisted group members in the review of their homework from previous group session.
--- NOTE | 2018-04-06 14:38 | BH.MDN ---
Multi-Disciplinary Note - Note Family Time Started:: 12:30 Date: 04/06/18 Time Stopped:: 13:30
--- NOTE | 2018-04-08 10:51 | PCM.PN.BLA ---
Progress Note Patient seen in follow-up for bipolar 1 disorder most recent episode depressed F 31.4, anxiety unspecified and likely medication reaction (akathisia). History is been obtained per interview with patient, discussion with staff, review of chart. Case discussed with treatment team. Chief complaint-bipolar disorder/depression and anxiety I see progress. Interim history Mild to moderate depressive symptoms persist but of decreased intensity over the past 2 weeks. Reports moments when I almost feel normal. Increased energy. Decreased anhedonia. Attributes improvement to coping skills (I think I learned a lot of good skills) and addition of Latuda 20 mg daily. Ruminative anxiety persists particularly regarding prognosis but anxiety is more controlled. Forward thinking and more hopeful. No suicidal or homicidal ideation. No symptoms consistent with psychosis. Sleeping from 10 PM to 6:30 AM. Appetite normal. Denies nausea vomiting or diarrhea. Caffeine consumption consists of an occasional ice tea. Denies ingestion of alcohol. Complaint of feeling jittery over the past 2 weeks but notes that this has significantly decreased within the past 2 days. Reports Cogentin 1 mg p.o.BID has been somewhat helpful. Mental status exam Alert and oriented . No acute distress. Ambulatory with normal gait and station. Appears stated age. Casually dressed and groomed. Appropriate hygiene. Cooperative with interview. Good eye contact. No psychomotor agitation or retardation. Mood depressed. Affect congruent. Speech is clear and with regular rate and rhythm. Language fluent. Thought process organized. Associations logical. Thought content significant for ruminative anxiety and themes of depression. No suicidal or homicidal ideation related or detected.. No symptoms consistent with psychosis noted or detected. Immediate recent and remote memory grossly intact. Attention and concentration are fair. Estimated intelligence and fund of knowledge average. Judgment and insight fair. Labs and testing January 26, 2018 lithium level 0.8 Further lab work will be obtained as needed Diagnosis Bipolar 1 disorder most recent episode depressed F 31.4 Anxiety unspecified Dermatitis/rash likely secondary to Lamictal-now resolved Akathisia likely secondary to Zyprexa/Latuda Patient has participated in [facility] and made progress. Patient is appropriate for discharge from [facility] with outpatient follow-up. Risks benefits alternatives of medications discussed with patient. Patient acknowledges understanding. Continue lithium ER 450 mg every morning and 900 mg nightly. Continue Latuda 20 mg daily. Decrease Zyprexa to 7.5 mg nightly with ultimate goal of cross titration with Latuda. Continue Cogentin 1 mg p.o. twice daily. Patient is forward thinking and agrees to ongoing outpatient follow-up. Patient has an appointment with Dr. Bolanos April 21. Encouraged exercise and healthy habits. Patient acknowledges understanding and is in agreement with plan. Feels able to maintain safety. Agrees to seek help or emergency care feeling unsafe to self or others. Case discussed with Dr. Bolanos for coordination of care.
--- NOTE | 2018-04-08 11:02 | PN_ITS ---
Progress Note Patient seen in follow-up for bipolar 1 disorder most recent episode depressed F 31.4, anxiety unspecified and likely medication reaction (akathisia). History is been obtained per interview with patient, discussion with staff, review of chart. Case discussed with treatment team. Chief complaint-bipolar disorder/depression and anxiety I see progress. Interim history Mild to moderate depressive symptoms persist but of decreased intensity over the past 2 weeks. Reports moments when I almost feel normal. Increased energy. Decreased anhedonia. Attributes improvement to coping skills (I think I learned a lot of good skills) and addition of Latuda 20 mg daily. Ruminative anxiety persists particularly regarding prognosis but anxiety is more controlled. Forward thinking and more hopeful. No suicidal or homicidal ideation. No symptoms consistent with psychosis. Sleeping from 10 PM to 6:30 AM. Appetite normal. Denies nausea vomiting or diarrhea. Caffeine consumption consists of an occasional ice tea. Denies ingestion of alcohol. Complaint of feeling jittery over the past 2 weeks but notes that this has significantly decreased within the past 2 days. Reports Cogentin 1 mg p.o.BID has been somewhat helpful. Mental status exam Alert and oriented . No acute distress. Ambulatory with normal gait and station. Appears stated age. Casually dressed and groomed. Appropriate hygiene. Cooperative with interview. Good eye contact. No psychomotor agitation or retardation. Mood depressed. Affect congruent. Speech is clear and with regular rate and rhythm. Language fluent. Thought process organized. Associations logical. Thought content significant for ruminative anxiety and themes of depression. No suicidal or homicidal ideation related or detected.. No symptoms consistent with psychosis noted or detected. Immediate recent and remote memory grossly intact. Attention and concentration are fair. Estimated intelligence and fund of knowledge average. Judgment and insight fair. Labs and testing January 26, 2018 lithium level 0.8 Further lab work will be obtained as needed Diagnosis Bipolar 1 disorder most recent episode depressed F 31.4 Anxiety unspecified Dermatitis/rash likely secondary to Lamictal-now resolved Akathisia likely secondary to Zyprexa/Latuda Patient has participated in [facility] and made progress. Patient is appropriate for discharge from [facility] with outpatient follow-up. Risks benefits alternatives of medications discussed with patient. Patient acknowledges understanding. Continue lithium ER 450 mg every morning and 900 mg nightly. Continue Latuda 20 mg daily. Decrease Zyprexa to 7.5 mg nightly with ultimate goal of cross titration with Latuda. Continue Cogentin 1 mg p.o. twice daily. Patient is forward thinking and agrees to ongoing outpatient follow-up. Patient has an appointment with Dr. Bolanos April 21. Encouraged exercise and healthy habits. Patient acknowledges understanding and is in agreement with plan. Feels able to maintain safety. Agrees to seek help or emergency care feeling unsafe to self or others. Case discussed with Dr. Bolanos for coordination of care.
--- NOTE | 2018-04-08 12:31 | BH.AFTERPLAN ---
Aftercare Plan - Demographics Treatment End Date:: 04/08/18 Psychiatrist:: Dulce Mcmillan Psychiatrist Office #:: [phone] [facility] Therapist:: Zoey Tejada Therapist Phone #:: [phone] - Medications Home Medications: Home Medications Lorazepam [Ativan] 1 mg PO PRN PRN 05/15/17 Mirtazapine [Remeron] 15 mg PO DAILY 05/15/17 Sertraline HCl [Zoloft] 100 mg PO DAILY 05/15/17 Multivitamin [Multiple Vitamins] 1 each PO DAILY 10/15/17 Quetiapine Fumarate [Seroquel Xr] 50 mg PO DAILY 11/16/17 Quetiapine Fumarate [Seroquel Xr] 100 mg PO QHS 11/16/17 - Plan Details Progress/Aftercare Plan Details:: You have demonstrated progress with increased self-awareness of you negative thoughts and distorted thoughts. With the increased awareness of unhelpful thinking you showed progress with being able challenging and reframe those distorted and negative thought patterns. Throughout the program you've experienced ups and downs and showed resilience with fighting through the difficult moments. There is signficiant progress with not letting external situations control your emotions. Progress is noted with you utilizing your healthy coping skills on a more consistent basis, even on days you don't really want to do anything. Remember the importance of recognizing the positives and accomplishments you have made. Plan is for you to follow up with Dr. Bolanos for medication management and Fernando Carrington for counseling. Strategies for Success:: 1. Continue to challenge negative thought patterns. 2. Asking yourself does my emotion match the circumstance. 3. Using grounding and mindfulness to bring yourself back to the here and now. 4. Remember to keep a set routine and schedule. 5. Being active - keep up with the jogging. 6. Refer back to [facility] binder for refresh of skills. 7. Set SMART daily goals. - Appointments Appointments/Referrals to Other Services:: 1. Dr. Bolanos on April 21 for psychiatry appointment. 2. Fernando Carrington on April 23 for counseling appointment.
--- NOTE | 2018-04-08 12:37 | BH.IGGP_ITS ---
Aftercare Plan - Demographics Treatment End Date:: 04/08/18 Psychiatrist:: Dulce Mcmillan Psychiatrist Office #:: [phone] [facility] Therapist:: Zoey Tejada Therapist Phone #:: [phone] - Medications Home Medications: Home Medications Lorazepam [Ativan] 1 mg PO PRN PRN 05/15/17 Mirtazapine [Remeron] 15 mg PO DAILY 05/15/17 Sertraline HCl [Zoloft] 100 mg PO DAILY 05/15/17 Multivitamin [Multiple Vitamins] 1 each PO DAILY 10/15/17 Quetiapine Fumarate [Seroquel Xr] 50 mg PO DAILY 11/16/17 Quetiapine Fumarate [Seroquel Xr] 100 mg PO QHS 11/16/17 - Plan Details Progress/Aftercare Plan Details:: You have demonstrated progress with increased self-awareness of you negative thoughts and distorted thoughts. With the increased awareness of unhelpful thinking you showed progress with being able challenging and reframe those distorted and negative thought patterns. Throughout the program you've experienced ups and downs and showed resilience with fighting through the difficult moments. There is signficiant progress with not letting external situations control your emotions. Progress is noted with you utilizing your healthy coping skills on a more consistent basis, even on days you don't really want to do anything. Remember the importance of recognizing the positives and accomplishments you have made. Plan is for you to follow up with Dr. Bolanos for medication management and Fernando Carrington for counseling. Strategies for Success:: 1. Continue to challenge negative thought patterns. 2. Asking yourself does my emotion match the circumstance. 3. Using grounding and mindfulness to bring yourself back to the here and now. 4. Remember to keep a set routine and schedule. 5. Being active - keep up with the jogging. 6. Refer back to [facility] binder for refresh of skills. 7. Set SMART daily goals. - Appointments Appointments/Referrals to Other Services:: 1. Dr. Bolanos on April 21 for psychiatry appointment. 2. Fernando Carrington on April 23 for counseling appointment.
--- NOTE | 2018-04-08 14:37 | BH.DS ---
Discharge Summary - Demographics Date of Admission:: 02/03/18 Discharge Date: 04/08/18 Presenting Problems at Admission:: Patient referred to [facility] by outpatient psychiatrist Dr. Bolanos for evaluation and treatment of mood symptoms with new diagnosis of bipolar disorder. Patient reported a long-standing history of depression for more than 20 years. He was recently diagnosed with bipolar disorder after a manic episode mid October. Manic episode was preceded by cholecystectomy October 18 and treatment with Zoloft and Remeron. Patient began to recognize manic symptoms mid-October described as a elevated state. He reports having increased energy, being more talkative, reduced sleep to 2-3 hours per night, irrational behavior, impulsivity, and urges to spend money. He was ultimately admitted to [facility]. He reports that his manic symptoms resolved but in December he developed increased depression. He endorsed a depressed mood with anhedonia, decreased energy, and difficulty concentrating. Discharge Diagnoses:: Bipolar 1 disorder most recent episode depressed F 31.4. Anxiety unspecified Reason for Discharge:: Pt has made signficiant progress on treament goals and no longer meets medical necessity for [facility] level of care. - Treatment Progress During Treatment & Response: Client has demonstrated progress with increased self-awareness of negative thoughts and distorted thoughts. Client has shown significant progress with being able to challenge and reframe those distorted and negative thought patterns. Despite experiencing ups and downs while in IOP client able to overcome obstacles and stressors more easily compared to when he started program. There is signficiant progress with not letting external situations control client's emotions. Client utilizing healthy coping skills on a more consistent basis. Client responded well to program AEB client consistently attending program, engaging in discussions, and completing assigned homework. Issues Still to be Addressed:: Client could benefit from continued reinforcement of skills learned. Client contniues to have a lot of anxiety associated with fear of not being able to return to work. 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 Client also could benefit from continuing to identify and challenge distorted thought patterns. Discharge Recommendations/Instructions:: Client is recommended to follow up with outpatient counselor Fernando Reddy and outpatient pschiatrist Dr. Bolanos. Discharge Handout: Complete Discharge Handout with client on aftercare options and continuity of care.
--- NOTE | 2018-04-08 15:08 | BH.SGPN ---
Service Group Progress Note - Session Psychotherapy Session #1 Date Open:: 04/08/18 Time Started:: 09:10 Time Stopped:: 10:00 Type of Group:: Process - 8 group members Goal of Group:: The goal of today's group was to check-in with client's mood, stressors, and positives, and review homework. Client Response/Progress/Benefit:: Pt was an active participant in group discussion. Provided appropriate feedback. Shared with the group several stressors which occured in the past few days. Reports that in the past this would have sent him into an emotional tailspin however he was able to recover through coping skills. Identified that he was able to identify cognitive distortions that he was using, use some coping skills, and reframe thoughts. Shared with the group that today is his last day in the program and he discussed the benefits of the program and his improved mood. Group provided support and praised pt for his effort. Pt will be discharged from [facility] today. Eye Contact:: Good Motor Activity:: Appropriate Appearance:: Casual Speech:: Appropriate Mood:: Euthymic Affect:: Full, Bright Thoughts:: Linear, Logical, No evidence of hallucinations/delusions noted Staff Interventions:: Therapist used open-ended questions to elicit information about client's current stressors and mood state. Therapist was supportive by using active listening and reflection
--- NOTE | 2018-04-08 15:20 | BH.SGPN ---
Service Group Progress Note - Session Psychotherapy Session #3 Date Open:: 04/08/18 Time Started:: 11:15 Time Stopped:: 12:10 Targeted Problem #:: 1 Type of Group:: Functional Skills Development - 7 group members Goal of Group:: To identify personal barriers that get in the way of accomplishing tasks and identify internal and external resources to help overcome difficult situations. Client Response/Progress/Benefit:: Client active participant AEB client sharing thoughts and feelings as well as listening to others. Client identified his personal obstacles to include: fear of not getting back to work and negative thoughts. Client worked cooperatively with small group to identify different internal resources that could be helpful to overcome various obstacles in life. Client shared he will use todays topic in daily life by applying the external and internal resources more consistently. Client seemed to benefit from increasing awareness of his obstacles and identifying strategies to help him overcome what seems impossible. Client noted progress made since he entered [facility], given today is his last day in the program. Eye Contact:: Good Motor Activity:: Appropriate Appearance:: Casual Speech:: Appropriate Mood:: Euthymic, Anxious Affect:: Congruent Thoughts:: Linear, Logical, No evidence of hallucinations/delusions noted Staff Interventions:: Therapist facilitated discussion about internal and external resources and helped clients connect various internal resources they use. Therapist provided group members with a handout that gave information about various external resources the clients could utilize to get support. Therapist gave clients a worksheet in which they were asked to identify several barriers that get in their way to overcoming difficult situations. They also were asked to identify several internal and external resources they could use when needed.
--- NOTE | 2018-04-08 15:40 | BH.DS_ITS ---
Discharge Summary - Demographics Date of Admission:: 02/03/18 Discharge Date: 04/08/18 Presenting Problems at Admission:: Patient referred to [facility] by outpatient psychiatrist Dr. Bolanos for evaluation and treatment of mood symptoms with new diagnosis of bipolar disorder. Patient reported a long-standing history of depression for more than 20 years. He was recently diagnosed with bipolar disorder after a manic episode mid October. Manic episode was preceded by cholecystectomy October 18 and treatment with Zoloft and Remeron. Patient began to recognize manic symptoms mid-October described as a elevated state. He reports having increased energy, being more talkative, reduced sleep to 2-3 hours per night, irrational behavior, impulsivity, and urges to spend money. He was ultimately admitted to [facility]. He reports that his manic symptoms resolved but in December he developed increased depression. He endorsed a depressed mood with anhedonia, decreased energy, and difficulty concentrating. Discharge Diagnoses:: Bipolar 1 disorder most recent episode depressed F 31.4. Anxiety unspecified Reason for Discharge:: Pt has made signficiant progress on treament goals and no longer meets medical necessity for [facility] level of care. - Treatment Progress During Treatment & Response: Client has demonstrated progress with increased self-awareness of negative thoughts and distorted thoughts. Client has shown significant progress with being able to challenge and reframe those distorted and negative thought patterns. Despite experiencing ups and downs while in IOP client able to overcome obstacles and stressors more easily compared to when he started program. There is signficiant progress with not letting external situations control client's emotions. Client utilizing healthy coping skills on a more consistent basis. Client responded well to program AEB client consistently attending program, engaging in discussions, and completing assigned homework. Issues Still to be Addressed:: Client could benefit from continued reinforcement of skills learned. Client contniues to have a lot of anxiety associated with fear of not being able to return to work. 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 Client also could benefit from continuing to identify and challenge distorted thought patterns. Discharge Recommendations/Instructions:: Client is recommended to follow up with outpatient counselor Fernando Reddy and outpatient pschiatrist Dr. Bolanos. Discharge Handout: Complete Discharge Handout with client on aftercare options and continuity of care.
--- NOTE | 2018-04-11 15:22 | BH.SGPN_ITS ---
Service Group Progress Note - Session Psychotherapy Session #3 Date Open:: 04/08/18 Time Started:: 11:15 Time Stopped:: 12:10 Targeted Problem #:: 1 Type of Group:: Functional Skills Development - 7 group members Goal of Group:: To identify personal barriers that get in the way of accomplishing tasks and identify internal and external resources to help overcome difficult situations. Client Response/Progress/Benefit:: Client active participant AEB client sharing thoughts and feelings as well as listening to others. Client identified his personal obstacles to include: fear of not getting back to work and negative thoughts. Client worked cooperatively with small group to identify different internal resources that could be helpful to overcome various obstacles in life. Client shared he will use today?s topic in daily life by applying the external and internal resources more consistently. Client seemed to benefit from increasing awareness of his obstacles and identifying strategies to help him overcome what seems impossible. Client noted progress made since he entered [facility] , given today is his last day in the program. Eye Contact:: Good Motor Activity:: Appropriate Appearance:: Casual Speech:: Appropriate Mood:: Euthymic, Anxious Affect:: Congruent Thoughts:: Linear, Logical, No evidence of hallucinations/delusions noted Staff Interventions:: Therapist facilitated discussion about internal and external resources and helped clients connect various internal resources they use. Therapist provided group members with a handout that gave information about various external resources the clients could utilize to get support. Therapist gave clients a worksheet in which they were asked to identify several barriers that get in their way to overcoming difficult situations. They also were asked to identify several internal and external resources they could use when needed.
--- NOTE | 2018-04-12 14:37 | BH.MTP_ITS ---
Treatment Plan Review Date of Admission:: 02/03/18 Date of Treatment Plan Review:: 03/31/18 Admitting Diagnoses:: Bipolar 1 disorder most recent episode depressed F 31.4. Anxiety unspecified Current Diagnoses:: Bipolar 1 disorder most recent episode depressed F 31.4. Anxiety unspecified Patient's Response to Treatment:: Pt has been attending on a consistent basis and is an active participant in group. He is utilizing skills learned in group. Pt has scheduled a family session for next week. Overall has responded well to treatment interventions and has made significant progress in IOP. Status of Current Problems and Symptoms: Pt continues to report anxious thoughts , restlessness, and worries about the future which effect his daily functioning and mood. While he is utilizing strategies learned in group he at times struggles with consistently applying skills. Would benefit from an additional week of IOP to complete treatment plan goals, maintain gains, stabilize mood, and prevent decompensation. Problem #1 Problem Name:: Client will increase mood stability and decrease depressive symptom Status of Goals:: Pt has shown significant progress with awareness of his negative and distorted thought patterns. Pt is more effective and efficient with challenging unhelpful thinking in the moment. Pt also has awareness of his warning signs for both depressive and manic episodes. Pt is on track to meet his goals. Team Recommendations:: Pt progressing well, plan to discharge next week. Problem #2 Problem Name:: Stabilize anxiety level while increasing ability to function on daily basis Status of Goals:: Pt is utilizing his healthy coping skills of jogging, being active, and having a morning routine. Pt admits he sometimes doesn't follow through with his morning routine which he notices does increase his anxiety level. Pt struggles with recognizing progress due to his expecations of self often being unrealistic. Pt has made signficiant progress of stabilizing anxiety compared to when first started program, but could benefit from continued reinforcement of healthy skills as well as refuting or challening anxious thought patterns. Team Recommendations:: Pt is progressing well with treatment goals. Team recommends if pt's anxiety and restless continue to impact functioning will have IOP psychiatrist assess if medication adjustment needs to occur. Plan is to discharge from IOP next week.
== END 2018-04-08 14:00 | disposition home or self-care (01) ==
LOC: BHIOP 09:00
PROVIDERS: Family Provider Family Medicine; PCP Family Medicine; Visit Provider Psychiatry & Neurology Psychiatry
DX: F31.4 Bipolar disorder, current episode depressed, severe, without psychotic features (principal); F41.9 Anxiety disorder, unspecified; L27.0 Generalized skin eruption due to drugs and medicaments taken internally; T42.6X5A Adverse effect of other antiepileptic and sedative-hypnotic drugs, initial encounter; G25.71 Drug induced akathisia; T43.595A Adverse effect of other antipsychotics and neuroleptics, initial encounter; Z79.899 Other long term (current) drug therapy
CPT/HCPCS: H0035; 90834; 90847; 90853

== ENCOUNTER → 2018-04-25 08:52 | Outpatient (CLI) | payer OTHER, SELFPAY ==
[2018-04-25 10:44] LABS: Anion Gap 10 (5-15); BUN 11 mg/dL (7-18); BUN/Creat Ratio 11.9 RATIO (10-20); Calcium,Total 8.8 mg/dL (8.5-10.1); Chloride 106 mmol/L (98-107); Creatinine, Serum 0.93 mg/dL (0.70-1.30); EST Glomerular Filtration Rate 93 mL/min (>60); Est Glom Filt Rate - Afr Amer 112 mL/min (>60); Glucose 97 mg/dL (74-106); Potassium 3.8 mmol/L (3.5-5.1); Sodium Level 143 mmol/L (136-145); T4 Free Direct 0.95 ng/dL (0.76-1.46); Thyroid Stim Hormone (TSH) 1.51 uIU/mL (0.358-3.74)
== END ==
PROVIDERS: Family Provider Family Medicine; PCP Family Medicine; Visit Provider Psychiatry & Neurology Psychiatry
DX: F31.9 Bipolar disorder, unspecified (principal)
CPT/HCPCS: 36415; 80048; 80178; 84439; 84443; 84481

== ENCOUNTER → 2018-07-28 08:25 | Outpatient (CLI) | payer OTHER, SELFPAY ==
[2018-07-28 10:39] LABS: Anion Gap 6 (5-15); BUN 10 mg/dL (7-18); BUN/Creat Ratio 8.6 RATIO (10-20); Calcium,Total 9.2 mg/dL (8.5-10.1); Chloride 106 mmol/L (98-107); Creatinine, Serum 1.16 mg/dL (0.70-1.30); EST Glomerular Filtration Rate 72 mL/min (>60); Est Glom Filt Rate - Afr Amer 87 mL/min (>60); Free T3 3.5 pg/mL (2.18-3.98); Glucose 131 mg/dL (74-106); Potassium 3.9 mmol/L (3.5-5.1); Sodium Level 141 mmol/L (136-145); T4 Free Direct 1.11 ng/dL (0.76-1.46); Thyroid Stim Hormone (TSH) 0.19 uIU/mL (0.358-3.74)
== END ==
PROVIDERS: Family Provider Internal Medicine; PCP Internal Medicine; Referring Provider Psychiatry & Neurology Psychiatry; Visit Provider Psychiatry & Neurology Psychiatry
DX: F31.9 Bipolar disorder, unspecified (principal)
CPT/HCPCS: 36415; 80048; 80178; 84439; 84443; 84481